=== PATIENT | female | born 1960 | race Caucasian/White ===

== ENCOUNTER → 2016-11-17 | Outpatient (CLI) | payer OTHER, MEDICAID | LOC: BHLMT 10:45 | PROVIDERS: ATTEND Internal Medicine Cardiovascular Disease | DX: I42.9 Cardiomyopathy, unspecified (principal) | CPT/HCPCS: 93306-PO ==

== ENCOUNTER → 2017-03-09 | Outpatient (CLI) | payer OTHER, MEDICAID | LOC: BHLMT 11:00 | PROVIDERS: ATTEND Internal Medicine Cardiovascular Disease | DX: R06.00 Dyspnea, unspecified (principal) | CPT/HCPCS: 93306-PO ==

== ENCOUNTER 2017-03-15 16:18 | Inpatient (IN) | payer OTHER, MEDICAID ==
--- NOTE | 2017-03-15 16:38 | EDPHY ---
H & P Stated Complaint: R QUAD PAIN,SUPRAPUBIC PAIN, CTA9/14 SHOWS MASS IN BILE DUCT? - Personal History Current Tetanus/Diphtheria Vaccine: Unsure Current Tetanus Diphtheria and Acellular Pertussis (TDAP): Unsure - Medical/Surgical History Hx Asthma: No Hx Chronic Respiratory Disease: No Hx Diabetes: No Hx Cardiac Disease: No Hx Renal Disease: No Hx Cirrhosis: No Hx Alcoholism: No Hx HIV/AIDS: No Hx Splenectomy or Spleen Trauma: No Other PMH: PACEMAKER dR CEDEÑO. chf, CERVICAL Disc issues - Social History Smoking Status: Current every day smoker Time Seen by Provider: 03/15/17 16:34 HPI/ROS: Chief complaint: Abdominal pain History of present illness: This is a 56-year-old female who presents to the emergency department for evaluation of abdominal pain. Patient reports she has had pain for at least a month. The pain is primarily on the right side. It comes in waves. She denies precipitating factors. She denies alleviating factors. She denies other associated signs or symptoms including no fevers, no nausea, vomiting or diarrhea. She has had outpatient imaging studies performed including a CT angiogram of the abdomen and pelvis with and without contrast on March 11, 4 days ago at [facility] that showed 'cholelithiasis without CT evidence of cholecystitis, moderate intrahepatic and extrahepatic biliary ductal dilatation and amorphous soft tissue density within the distal common bile duct just above the ampulla most likely reflects choledocholithiasis.' Review of systems: A 10 point review of systems was obtained and other than described above was negative (Alec Mason) - Physical Exam Exam: General Appearance: Alert, appears uncomfortable. Eyes: Pupils equal and round no pallor or injection. ENT, Mouth: Mucous membranes moist. Respiratory: There are no retractions, lungs are clear to auscultation. Cardiovascular: Regular rate and rhythm. Gastrointestinal: Bowel sounds present and normal. Abdomen slightly distended. Diffuse tenderness with point of maximal intensity in the right upper quadrant. Equivocal Swartz sign. Neurological: Alert and oriented x4. Strength and sensation intact and symmetrical. Skin: Warm and dry, no rashes. Musculoskeletal: Neck is supple non tender. Extremities are symmetrical, full range of motion. Psychiatric: Patient is oriented X 3, there is no agitation. (Alec Mason) Constitutional: Initial Vital Signs Temperature (C) 36.8 C 03/15/17 16:24 Heart Rate 89 03/15/17 16:24 Respiratory Rate 16 03/15/17 16:24 Blood Pressure 118/72 03/15/17 16:24 O2 Sat (%) 91 L 03/15/17 16:24 O2 Delivery Mode Room Air Allergies/Adverse Reactions: No Known Allergies Allergy (Unverified 09/27/14 08:22) Home Medications: Medication Instructions Recorded Aspirin EC [Aspirin EC 81 mg (*)] 81 mg PO DAILY 03/15/17 Carvedilol [Coreg (*)] 25 mg PO BIDMEAL 03/15/17 Furosemide [Lasix 40 MG (*)] 40 mg PO BID 03/15/17 Potassium Cl [Klor-Con 20 meq (*)] 20 meq PO DAILY 03/15/17 Vit27&Calcium/Iron/FA 1 each PO DAILY 03/15/17 [ Rx 1 Tablet (RX)] Spironolactone [Aldactone 25 MG 25 mg PO DAILY 03/15/17 (*)] clonAZEPAM [Klonopin] 0.5 mg PO TID PRN 03/15/17 oxyCODONE HCL [Roxicodone] 15 mg PO Q4 PRN 03/15/17 Medical Decision Making - Diagnostics Imaging: Discussed imaging studies w/ orthopedically impaired teacher Radiologist - Diagnostics Imaging Results: Imaging Impressions Abdomen Ultrasound 03/15/17 16:44 Impression: Cholelithiasis with tiny polyps and/or adherent sludge, and a positive sonographic Swartz's sign with mild biliary ductal dilatation but no choledocholithiasis observed. Findings were discussed with Alec Mason PA-C at 17:34, on 03/15/2017. ED Course/Re-evaluation: Patient is discussed with my secondary supervising physician Dr. Shadi Corea. Patient presents to the emergency department for right upper quadrant pain. Ultimately she appears to have symptomatic cholelithiasis. Further she is hyponatremic. She will be admitted to medicine service for further evaluation and care under the care of Dr. Ramesh Mcintosh. Dr. Marc Elliott will consult on this patient as general surgeon. (Alec Mason) Differential Diagnosis: Included but not limited to gastritis, peptic ulcer disease, biliary tract disease, pancreatitis, colitis (Alec Mason) Other Provider: PHYSICIAN DOCUMENTATION: The patient was evaluated and managed by the Physician Manager Of Applications Development and myself. I have reviewed the chart and agree with the findings and plan of care as documented. In addition, I examined the patient myself at 1853. History confirmed as right upper quadrant abdominal pain. Physical findings as follows: Intermittent tenderness in various areas of her abdomen, the exam does show different areas of tenderness during serial examinations. 12-lead EKG interpreted by me; official reading is in trace master. My interpretation is atrial sensed V paced at 80. Patient will be admitted to the hospitalist for hyponatremia and abdominal pain , with General surgery consultation for symptomatic cholelithiasis. I am the secondary supervising physician. (Shadi Corea) - Data Points Laboratory Results: Laboratory Results 03/15/17 16:48 03/15/17 16:48 03/15/17 03/15/17 03/15/17 16:48 16:48 16:48 WBC RBC Hgb Hct MCV MCH MCHC RDW Plt Count MPV Neut % (Auto) Lymph % (Auto) Parke % (Auto) Eos % (Auto) Baso % (Auto) Nucleat RBC Rel Count Absolute Neuts (auto) Absolute Lymphs (auto) Absolute Monos (auto) Absolute Eos (auto) Absolute Basos (auto) Absolute Nucleated RBC Immature Gran % Immature Gran # Sodium 127 mEq/L L mEq/L (134-144) Potassium 3.4 mEq/L L mEq/L (3.5-5.2) Chloride 85 mEq/L L mEq/L (97-110) Carbon Dioxide 29 mEq/l mEq/l (22-31) Anion Gap 13 mEq/L mEq/L (8-16) BUN 7 mg/dL mg/dL (7-23) Creatinine 0.6 mg/dL mg/dL (0.6-1.0) Estimated GFR > 60 Glucose 144 mg/dL H mg/dL (70-100) Calcium 9.8 mg/dL mg/dL (8.5-10.4) Total Bilirubin 0.7 mg/dL mg/dL (0.1-1.4) Conjugated Bilirubin 0.3 mg/dL mg/dL (0.0-0.5) Unconjugated Bilirubin 0.4 mg/dL mg/dL (0.0-1.1) AST 27 IU/L IU/L (14-46) ALT 28 IU/L IU/L (9-52) Alkaline Phosphatase 101 IU/L IU/L (38-126) Troponin I < 0.012 ng/mL ng/mL (0.000-0.034) Total Protein 8.1 g/dL g/dL (6.3-8.2) Albumin 4.5 g/dL g/dL (3.5-5.0) Lipase 21 IU/L L IU/L (23-300) Urine Color TERESITA Urine Appearance HAZY Urine pH 5.0 (5.0-7.5) Ur Specific [place] 1.018 (1.002-1.030) Urine Protein 1+ H (NEGATIVE) Urine Ketones NEGATIVE (NEGATIVE) Urine Blood 1+ H (NEGATIVE) Urine Nitrate NEGATIVE (NEGATIVE) Urine Bilirubin NEGATIVE (NEGATIVE) Urine Urobilinogen 2.0 EU H EU (0.2-1.0) Ur Leukocyte Esterase NEGATIVE (NEGATIVE) Urine RBC 1-3 /hpf /hpf (0-3) Urine WBC 3-5 /hpf H /hpf (0-3) Ur Epithelial Cells TRACE /lpf /lpf (NONE-1+) Hyaline Casts 50-182 /lpf H /lpf (0-1) Urine Mucus TRACE /lpf /lpf (NONE-1+) Urine Glucose NEGATIVE (NEGATIVE) 03/15/17 16:48 WBC 10.30 10^3/uL H 10^3/uL (3.80-9.50) RBC 5.75 10^6/uL H 10^6/uL (4.18-5.33) Hgb 19.4 g/dL H g/dL (12.6-16.3) Hct 54.8 % H % (38.0-47.0) MCV 95.3 fL fL (81.5-99.8) MCH 33.7 pg pg (27.9-34.1) MCHC 35.4 g/dL g/dL (32.4-36.7) RDW 13.3 % % (11.5-15.2) Plt Count 129 10^3/uL L 10^3/uL (150-400) MPV 11.0 fL fL (8.7-11.7) Neut % (Auto) 57.1 % % (39.3-74.2) Lymph % (Auto) 28.9 % % (15.0-45.0) Parke % (Auto) 8.3 % % (4.5-13.0) Eos % (Auto) 3.9 % % (0.6-7.6) Baso % (Auto) 1.5 % % (0.3-1.7) Nucleat RBC Rel Count 0.0 % % (0.0-0.2) Absolute Neuts (auto) 5.89 10^3/uL 10^3/uL (1.70-6.50) Absolute Lymphs (auto) 2.98 10^3/uL 10^3/uL (1.00-3.00) Absolute Monos (auto) 0.85 10^3/uL H 10^3/uL (0.30-0.80) Absolute Eos (auto) 0.40 10^3/uL 10^3/uL (0.03-0.40) Absolute Basos (auto) 0.15 10^3/uL H 10^3/uL (0.02-0.10) Absolute Nucleated RBC 0.00 10^3/uL 10^3/uL (0-0.01) Immature Gran % 0.3 % % (0.0-1.1) Immature Gran # 0.03 10^3/uL 10^3/uL (0.00-0.10) Sodium Potassium Chloride Carbon Dioxide Anion Gap BUN Creatinine Estimated GFR Glucose Calcium Total Bilirubin Conjugated Bilirubin Unconjugated Bilirubin AST ALT Alkaline Phosphatase Troponin I Total Protein Albumin Lipase Urine Color Urine Appearance Urine pH Ur Specific [place] Urine Protein Urine Ketones Urine Blood Urine Nitrate Urine Bilirubin Urine Urobilinogen Ur Leukocyte Esterase Urine RBC Urine WBC Ur Epithelial Cells Hyaline Casts Urine Mucus Urine Glucose Medications Given: Discontinued Medications Hydromorphone HCl (Dilaudid) 1 mg IVP EDNOW ONE Stop: 03/15/17 16:45 Last Admin: 03/15/17 17:42 Dose: 1 mg Oxycodone HCl (Oxycodone Ir) 15 mg PO EDNOW ONE Stop: 03/15/17 19:01 Last Admin: 03/15/17 18:53 Dose: 15 mg Departure - Departure Disposition: [facility] Acute Clinical Impression: Hyponatremia Cholelithiasis Qualifiers: Cholelithiasis location: gallbladder Cholecystitis presence: without cholecystitis Biliary obstruction: without biliary obstruction Qualified Code(s) : K80.20 - Calculus of gallbladder without cholecystitis without obstruction Condition: Good
[2017-03-15] MEDS ORDERED: HYDROmorphONE/DILAUDID 1 MG/ML INJ IVP ONE ×2 (16:44→19:20)
[2017-03-15 16:54] LABS: % IMMATURE GRANULYOCYTES 0.3 % (0.0-1.1); ABSOLUTE IMMATURE GRANULOCYTES 0.03 10^3/uL (0.00-0.10); ADD DIFF? NO; ADD MORPH? NO; ADD SCAN? NO; ATYPICAL LYMPHOCYTE FLAG 10 (0-99); FRAGMENT RBC FLAG 0 (0-99); HEMATOCRIT 54.8 % (38.0-47.0); HEMOGLOBIN 19.4 g/dL (12.6-16.3); LEFT SHIFT FLG 0 (0-99); LIPEMIA HEMOLYSIS FLAG 90 (0-99); MEAN CELL HEMOGLOBIN 33.7 pg (27.9-34.1); MEAN CELL HEMOGLOBIN CONCENTR. 35.4 g/dL (32.4-36.7); MEAN CELL VOLUME 95.3 fL (81.5-99.8); PLATELET CLUMPS FLAG 0 (0-99); PLATELET COUNT 129 10^3/uL (150-400); RED BLOOD CELL COUNT 5.75 10^6/uL (4.18-5.33); RED CELL DISTRIBUTION WIDTH 13.3 % (11.5-15.2)
[2017-03-15 17:04] LABS: COLOR AMBER; LEUKOCYTE ESTERASE,URINE NEGATIVE (NEGATIVE); NITRITE,URINE NEGATIVE (NEGATIVE)
[2017-03-15 17:07] LABS: HYALINE CASTS 50-182 /lpf (0-1); MUCUS TRACE /lpf (NONE-1+)
[2017-03-15 17:32] LABS: ALANINE AMINOTRANSFERASE 28 IU/L (9-52); ALBUMIN 4.5 g/dL (3.5-5.0); ALKALINE PHOSPHATASE 101 IU/L (38-126); ANION GAP 13 mEq/L (8-16); ASPARTATE AMINOTRANSFERASE 27 IU/L (14-46); BILIRUBIN,TOTAL 0.7 mg/dL (0.1-1.4); BILIRUBIN-CONJUGATED 0.3 mg/dL (0.0-0.5); BILIRUBIN-UNCONJUGATED 0.4 mg/dL (0.0-1.1); CALCIUM 9.8 mg/dL (8.5-10.4); CARBON DIOXIDE 29 mEq/l (22-31); CHLORIDE 85 mEq/L (97-110); CREATININE 0.6 mg/dL (0.6-1.0); GLOMERULAR FILTRATION RATE > 60; GLUCOSE 144 mg/dL (70-100); POTASSIUM 3.4 mEq/L (3.5-5.2); SODIUM 127 mEq/L (134-144); TOTAL PROTEIN 8.1 g/dL (6.3-8.2)
[2017-03-15] MEDS ORDERED: oxyCODONE IR 15 MG TAB PO ONE (18:40)
--- NOTE | 2017-03-15 18:52 | CPEKG ---
Heart Rate: 80 RR Interval: 750 P-R Interval: 144 QRSD Interval: 112 QT Interval: 416 QTC Interval: 480 P [place]: -10 QRS [place]: 252 T Wave [place]: 47 EKG Severity - ABNORMAL ECG - EKG Impression: ATRIAL-SENSED VENTRICULAR-PACED RHYTHM Electronically Signed By: Shadi Corea 15-Mar-2017 18:55:01
--- NOTE | 2017-03-15 18:54 | PDGENHP ---
History and Physical History and Physical: CC: Ongoing abdominal pain HISTORY: This patient started developing right upper quadrant abdominal pain approximately a month ago. It has been mostly present since then although it waxes and wanes and occasionally is not present. The only thing that she really notices aggravating his when she bends over. She has been eating well with no nausea or vomiting and she has been having bowel movements. There has been no fever and no signs of bleeding She has had no fever with this. Notably she had seen Dr. Clark recently in [facility] and he ordered a CT scan of the abdomen which was done several days ago and showed evidence of bile duct dilation with what was called and amorphous soft tissue density within the distal common bile duct most consistent with a stone but other etiologies not ruled out. She did have gallstones present in the gallbladder. At this time the patient comes into the ER because of these ongoing abdominal symptoms. In addition to the above the patient around a month ago started noticing that she was feeling swelling of soft tissues in the limbs and face and had gained approximately 12 or more lb. It sounds like there was some degree of dyspnea with that. There was no anginal-type symptom no palpitations no pleuritic pain and no leg pain. She saw Dr. Clark. I reviewed Dr. Clark's notes, all which reflect the finding of had peripheral edema without any pulmonary rales, and an echocardiogram showing her preserved ejection fraction of 50 55%, and good function of her pacemaker. This was a limited echocardiogram and did not include assessment of right heart pressures. She was given instruction to increase her Lasix from 40 mg daily to twice daily along with her usual Aldactone. The patient states that her swelling has resolved and she feels better overall with the increase in diuretic. She still does have some chronic dyspnea with exertion that is at her baseline and notes that she does not tolerate going to altitude at all. She does not use oxygen at home. She is a smoker of many decades, and has a history of nonischemic idiopathic cardiomyopathy it originally left her with ejection fraction of 15%. She has improved with time and with placement of a pacemaker so that she is now at 50-55 % ejection fraction. 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 Her left heart seem to be at her baseline and doing okay. Dr. Clark did not specifically comment on his impression of the mechanism of her episode. ROS: A comprehensive 10 system review revealed no other significant findings PAST MEDICAL HISTORY: Idiopathic nonischemic cardiomyopathy, status post pacemaker placement, most recent ejection fraction 50-55% by echo this month Chronic tobacco abuse I strongly suspect chronic obstructive lung disease and right-sided heart failure related to that Hypertension Stroke Pulmonary embolism FAMILY MEDICAL HISTORY: No family history of heart disease MEDICATIONS: The patients list has been reconciled by our clinical pharmacist in the EMR. I have reviewed the list and ordered appropriate medicines. PHYSICAL EXAMINATION: Vital Signs: Stable without fever Connie Scratcher: Sinus rhythm with ventricular pacing Examination: General: alert, oriented, good mentation, relaxed Skin: warm, dry, good color, no rash HEENT: normal Neck: no mass or jvd Resps: relaxed Lungs: Very diminished but clear breath sounds Heart: regular, no murmur Abdomen: soft, nondistended, with some right upper quadrant tenderness no guarding or rebound, +BS, no mass Upper Extremities: normal Lower Extremities: no edema, warm No Bleeding or bruising Neurologic: normal speech/language, normal plush brusher, no focal weakness IV site: looks normal LABORATORY DATA: [place] [address] though the neutrophil count is normal at 5000 Hemoglobin is elevated 19 though is chronically elevated in that range Sodium is low at 127, it was 134 earlier this month Liver panel and troponin are normal RADIOLOGY STUDIES: Two-view chest x-ray done in the ER, my interpretation of the images shows marked good hyperexpansion of lungs, without evidence of left-sided congestive heart failure Abdominal ultrasound is done today showing evidence of gallstones and sludge in the gallbladder and common bile duct dilatation, with positive sonographic Swartz sign. The patient and her son have with them reports from a CT scan of the chest and the abdomen done at [facility] last week. Most notably the show evidence of common bile duct dilatation with probably a common distal duct stone as well as gallstones in the gallbladder. 12 LEAD EKG: Done in the ER, my interpretation of the tracing: Sinus rhythm with ventricular pacing and corresponding QRS and ST changes from pacing ASSESSMENT: # right upper quadrant abdominal pain for 1 month assess associated with CT and ultrasound findings of gallstones and biliary duct dilatation, and the ultrasound tonight has a positive sonographic Swartz sign. The interpretation of the CT from the radiologist was that there was an a more for soft tissue density in the common bile duct most consistent with a stone but with a differential diagnosis of other soft tissue. My interpretation is that this is most likely gallstone disease and will require cholecystectomy and removal of possibly a common duct stone. Dr. Elliott has been consulted to see the patient # recent episode of what sounds like right-sided congestive heart failure successfully treated with diuretic medicine increase. She is at her baseline now from both right and left heart function and symptoms # hyponatremia, uncertain what the cause of this is. She appears to be fairly close to euvolemic at this time # COPD based on her chronic symptoms, evidence of right heart disease, and ongoing smoking history # erythrocytosis, almost certainly secondary to chronic heart lung disease # history of pulmonary embolism with high risk of DVT and PE here in the hospital # PREOPERATIVE RISK ASSESSMENT: Overall she is at somewhat increased operative risk primarily at this time due to her chronic lung disease with evidence of COPD and right-sided heart disease related to that. I suspect she has pulmonary hypertension but did not have echocardiogram confirmation of that at this time. In terms of left heart function she seems to be doing fine right now with the ejection fraction of 50-55% with no ischemic symptoms or findings and no history of coronary disease. She does have history of PE and so is at risk for thromboembolism requiring anticoagulation. Her hyponatremia should be followed very closely. It would be good CT at least that is stable before trying to go to surgery. Overall we should be able to get her through a surgery here during this hospital stay safely enough if that is the ultimate recommendation after Dr. Elliott sees her. She should continue on her current cardiac medicines as much as possible through her hospital stay, bronchodilators will be useful, mobilization particularly early mobilization after surgery another to routine measures will be instituted. PLANS: -for the moment until Dr. Elliott sees her, will put her in observation status here. If she can have gallbladder out if that is actually indicated she could potentially have it done tonight or tomorrow and potentially still go home tomorrow. She has been of medical issues however there is possible she could have to stay longer particularly if her sodium is slowly correcting. -I will review the case with Dr. Elliott after he has a chance to see her -I have ordered PFTs to review her lung function and will add bronchodilators to her medicine list -urine sodium and creatinine to assess her hyponatremia -fluid restriction and repeat sodium in the morning I have reviewed the patient's case in detail with Dr. Shadi Corea I have reviewed the patient's past medical records as part of this assessment, including outpatient clinic records from Dr. Julio Cesar Clark and CT scan imaging reports from her CT chest and abdomen from [facility] last week.
[2017-03-15] MEDS ORDERED: oxyCODONE IR 5 MG TAB PO ONE (19:00)
[2017-03-15] MEDS ORDERED: oxyCODONE IR 15 MG TAB PO PRN (19:07)
[2017-03-15] MEDS ORDERED: NON-FORMULARY NEW DRUG (Clonazepam [Klonopin] 0.5 MG) PO PRN (19:07)
[2017-03-15] MEDS ORDERED: ONDANSETRON 4 MG/2 ML VIAL IVP PRN (19:09)
[2017-03-15] MEDS ORDERED: HYDROmorphONE/DILAUDID 1 MG/ML INJ ONE (19:21)
[2017-03-15] MEDS ORDERED: clonazePAM 0.5 MG TAB PO PRN (19:36)
[2017-03-15] MEDS: HYDROmorphONE/DILAUDID 1 MG/ML INJ IVP PRN (20:43)
[2017-03-15] MEDS: FUROSEMIDE 40 MG TAB PO SCH (20:44)
[2017-03-15] MEDS ORDERED: MIDAZOLAM 2 MG/2 ML VIAL IVP ONE (23:34)
--- NOTE | 2017-03-15 23:34 | PDANEPAE ---
ANE History of Present Illness 56 yo for lap jasiel h/o non ischemic cardiomopaty last ef 55% ANE Past Medical History - Cardiovascular History Hx Hypertension: No Hx Arrhythmias: No Hx Chest Pain: No Hx Coronary Artery / Peripheral Vascular Disease: No Hx CHF / Valvular Disease: Yes Hx Palpitations: No - Pulmonary History Hx COPD: Yes Hx Asthma/Reactive Airway Disease: No Hx Oxygen in Use at Home: No Hx Sleep Apnea: No Sleep Apnea Screening Result - Last Documented: Negative - Endocrine History Hx Diabetes: No ANE Review of Systems Review of Systems: ANE Patient History - Allergies Allergies/Adverse Reactions: No Known Allergies Allergy (Unverified 09/27/14 08:22) - Home Medications Home medications: home medication list seen and reviewed Home Medications: Aspirin EC [Aspirin EC 81 mg (*)] 81 mg PO DAILY 03/15/17 [Last Taken Unknown] Carvedilol [Coreg (*)] 25 mg PO BIDMEAL 03/15/17 [Last Taken Unknown] Furosemide [Lasix 40 MG (*)] 40 mg PO BID 03/15/17 [Last Taken Unknown] Potassium Cl [Klor-Con 20 meq (*)] 20 meq PO DAILY 03/15/17 [Last Taken Unknown] Vit27&Calcium/Iron/FA [ Rx 1 Tablet (RX)] 1 each PO DAILY 03/15 [Last Taken Unknown] Spironolactone [Aldactone 25 MG (*)] 25 mg PO DAILY 03/15/17 [Last Taken Unknown ] clonAZEPAM [Klonopin] 0.5 mg PO TID PRN 03/15/17 [Last Taken Unknown] oxyCODONE HCL [Roxicodone] 15 mg PO Q4 PRN 03/15/17 [Last Taken 03/15/17 12:00] - NPO status NPO Since - Liquids (Date): 03/15/17 NPO Since - Liquids (Time): 14:00 NPO Since - Solids (Date): 03/15/17 NPO Since - Solids (Time): 14:00 - Smoking Hx Smoking Status: Current every day smoker ANE Labs/Vital Signs - Labs Result Diagrams: 03/15/17 16:48 03/15/17 16:48 - Vital Signs Blood Pressure: 101/96 Heart Rate: 92 Respiratory Rate: 18 O2 Sat (%): 93 Height: 5 ft 9 in Weight: 65.771 kg ANE Physical Exam - Airway Neck exam: FROM Mallampati Score: Class 3 Mouth exam: dentures, small mouth opening - Pulmonary Pulmonary: no respiratory distress - Cardiovascular Cardiovascular: regular rate and rhythym - ASA Status ASA Status: III ANE Anesthesia Plan Anesthesia Plan: general endotracheal anesthesia
[2017-03-15] MEDS ORDERED: PROPOFOL/EMULSION 500 MG/50 ML BOTTLE IV ONE (23:39)
[2017-03-15] MEDS ORDERED: fentaNYL 100 MCG/2 ML INJ ONE ×2 (23:39)
[2017-03-15] MEDS ORDERED: MIDAZOLAM 2 MG/2 ML VIAL ONE (23:44)
[2017-03-15] MEDS ORDERED: BUPIVACAINE 0.5% 30 ML SDV ONE (23:50)
[2017-03-15] MEDS ORDERED: ceFAZolin 1 GM/5 ML SYR ONE (23:52)
[2017-03-15] MEDS ORDERED: HEPARIN 1000 UNIT/1 ML MDV ONE (23:52)
[2017-03-16] MEDS ORDERED: IOTHALAMATE MEG (CONRAY) 50 ML VIAL IV ONE ×2 (00:28→14:49)
[2017-03-16] MEDS ORDERED: ERTAPENEM 1 GM in NS 100 ML IV ONE (00:33)
[2017-03-16] MEDS ORDERED: ONDANSETRON 4 MG/2 ML VIAL IVP PRN (00:50)
[2017-03-16] MEDS ORDERED: PROMETHAZINE HCL 25 MG/ML INJ IVP PRN ×2 (00:50→16:59)
[2017-03-16] MEDS ORDERED: NALOXONE HCL 0.4 MG/ML INJ IVP PRN ×3 (00:50→16:59)
[2017-03-16] MEDS ORDERED: ALBUTEROL 3 ML DEYVIAL IH PRN (00:50)
[2017-03-16] MEDS ORDERED: fentaNYL 100 MCG/2 ML INJ ONE ×2 (00:51→01:27)
[2017-03-16] MEDS ORDERED: SUGAMMADEX SODIUM 200 MG/2 ML VIAL IVP ONE (00:57)
--- NOTE | 2017-03-16 01:14 | POSTOPPROG ---
Post Op Note Date of Operation: 03/16/17 Surgeon: Gurpreet Elliott Anesthesiologist: MARTINEZ Anesthesia: GET(General Endotracheal) Pre-op Diagnosis: ACUTE CHOLYCYSTITIS Post-op Diagnosis: SAME +CHOLEDOCHOLITHIASIS Indication: PAIN Procedure: LAP CHOLEY WITH GRAMS Findings: DISTENDED GB WITH STONES, LARGE CD WITH STONES Inf/Abcess present in the surg proc area at time of surgery?: Yes Depth: Organ Space EBL: Minimal Complications: 0 Specimen(s): GALLBLADDER
--- NOTE | 2017-03-16 01:16 | POSTANESTH ---
Post Anesthetic Evaluation Cardiovascular Status: Normal, Stable Respiratory Status: Similar to Pre-op Cond. Level of Consciousness/Mental Status: Mildly Sleepy, Arousable Pain Control: Adequate, Prn Tx Ordered Nausea/Vomiting Control: Adequate, Prn Tx Ordered
[2017-03-16] MEDS: fentaNYL 100 MCG/2 ML INJ IVP PRN ×2 (01:27→01:38)
[2017-03-16] MEDS ORDERED: D5W 1/2 NS W/ 20 KCl/L 1,000 ML IV SCH (01:30)
[2017-03-16] MEDS ORDERED: HYDROmorphONE/DILAUDID 1 MG/ML INJ ONE ×3 (01:40→17:22)
[2017-03-16] MEDS: HYDROmorphONE/DILAUDID 1 MG/ML INJ IVP PRN ×7 (01:45→10:51)
[2017-03-16] MEDS ORDERED: KETOROLAC 15 MG/1 ML SDV ONE (02:08)
[2017-03-16] MEDS ORDERED: KETOROLAC 15 MG/1 ML SDV IVP ONE (02:30)
[2017-03-16 06:02] LABS: % IMMATURE GRANULYOCYTES 0.4 % (0.0-1.1); ABSOLUTE IMMATURE GRANULOCYTES 0.05 10^3/uL (0.00-0.10); ADD DIFF? NO; ADD MORPH? NO; ADD SCAN? NO; ATYPICAL LYMPHOCYTE FLAG 0 (0-99); FRAGMENT RBC FLAG 0 (0-99); HEMATOCRIT 48.3 % (38.0-47.0); HEMOGLOBIN 16.9 g/dL (12.6-16.3); INR 1.06 (0.83-1.16); LEFT SHIFT FLG 0 (0-99); LIPEMIA HEMOLYSIS FLAG 90 (0-99); MEAN CELL HEMOGLOBIN 33.5 pg (27.9-34.1); MEAN CELL VOLUME 95.8 fL (81.5-99.8); MEAN PLATELET VOLUME 11.3 fL (8.7-11.7); PLATELET CLUMPS FLAG 0 (0-99); PLATELET COUNT 103 10^3/uL (150-400); PROTIME(PATIENT) 13.7 SEC (12.0-15.0); RED BLOOD CELL COUNT 5.04 10^6/uL (4.18-5.33); RED CELL DISTRIBUTION WIDTH 13.2 % (11.5-15.2)
[2017-03-16 06:08] LABS: ALANINE AMINOTRANSFERASE 51 IU/L (9-52); ALBUMIN 3.2 g/dL (3.5-5.0); ALKALINE PHOSPHATASE 82 IU/L (38-126); AMYLASE < 30 IU/L (30-110); ANION GAP 7 mEq/L (8-16); ASPARTATE AMINOTRANSFERASE 95 IU/L (14-46); BILIRUBIN,TOTAL 0.6 mg/dL (0.1-1.4); BILIRUBIN-CONJUGATED 0.3 mg/dL (0.0-0.5); BILIRUBIN-UNCONJUGATED 0.3 mg/dL (0.0-1.1); CARBON DIOXIDE 31 mEq/l (22-31); CHLORIDE 89 mEq/L (97-110); CREATININE 0.6 mg/dL (0.6-1.0); GLOMERULAR FILTRATION RATE > 60; GLUCOSE 137 mg/dL (70-100); POTASSIUM 3.4 mEq/L (3.5-5.2); SODIUM 127 mEq/L (134-144); TOTAL PROTEIN 6.2 g/dL (6.3-8.2)
[2017-03-16] MEDS: ASPIRIN EC 81 MG TAB PO SCH (08:14)
[2017-03-16] MEDS: CARVEDILOL 25 MG TAB PO SCH ×2 (08:14→20:26)
[2017-03-16] MEDS: FUROSEMIDE 40 MG TAB PO SCH (08:14)
[2017-03-16] MEDS ORDERED: POTASSIUM Cl (KCl) 40 MEQ in NS 1,000 ML IV SCH (08:30)
[2017-03-16] MEDS ORDERED: PRENATAL VIT 1 EACH TAB PO SCH (09:00)
[2017-03-16] MEDS ORDERED: ENOXAPARIN 40 MG/0.4 ML SYR SC SCH (09:00)
[2017-03-16] MEDS ORDERED: POTASSIUM CL 20 MEQ TAB PO SCH (09:00)
--- NOTE | 2017-03-16 09:54 | SOAPPROG ---
SOAP Progress Note Assessment/Plan: Assessment/Plan: 56 Y F s/p lap jasiel, cholelithiasis, acute cholecystitis, choledocholithiasis. POD#0. D/w'ed Dr. Elliott and Dr. Livingston. 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 Dr Livingston or Dr. Aden likely to take her for ERCP today. S: c/o pain. hungry. O: alert, nad mmm no wob abd soft, inc cdi Examined with Dr. Elliott. 03/16/17 10:46 Objective: Vital Signs Temp Pulse Resp BP Pulse Ox 36.7 C 84 18 104/57 L 90 L 03/16/17 07:47 03/16/17 07:47 03/16/17 07:47 03/16/17 07:47 03/16/17 07:47 Laboratory Results 03/16/17 05:30 03/16/17 05:30 03/15/17 03/16/17 03/17/17 05:59 05:59 05:59 Intake Total 1415 Output Total 270 Balance 1145 PT 13.7 SEC (12.0-15.0) 03/16/17 05:30 INR 1.06 (0.83-1.16) 03/16/17 05:30 ICD10 Worksheet Patient Problems: Problems Problem Status Onset Cholelithiasis Acute Hyponatremia Acute
[2017-03-16] MEDS: ERTAPENEM 1 GM in NS 100 ML IV SCH (10:41)
--- NOTE | 2017-03-16 11:27 | GCON ---
[f rep st] CONSULTATION DATE OF CONSULTATION: 03/15/2017 HISTORY OF PRESENT ILLNESS: The patient is a 56-year-old female who presents with nearly 2 weeks of abdominal pain focused in the right upper quadrant, radiating to her back. She has been unable to eat . She denies any significant vomiting. LFTs have been normal. Her ultrasound reveals multiple gallsto lucille and enlarged common duct. She denies any fever, but she has been having symptoms for over a month , she says. She has had a recent cardiac evaluation which showed good heart function despite her pace maker needs. She has had some recent peripheral edema which responded to Lasix from her developer architect. She has a history of cardiomyopathy. PAST HISTORY: Includes nonischemic cardiomyopathy, pacemaker placement, chronic tobacco use, some CO PD, hypertension, history of a stroke, and history of a small remote pulmonary embolism. FAMILY HISTORY: Positive for heart disease, but otherwise noncontributory. REVIEW OF SYSTEMS: Reveals no other major medical problems on a full 10-point review of systems, but specifically she is smoking. She denies any present cardiac symptoms. ALLERGIES: None. MEDICATIONS: Aspirin, Coreg, Lasix, potassium, vitamins, Aldactone, Klonopin, and Roxicodone. PHYSICAL EXAMINATION: GENERAL: An anxious, uncomfortable 56-year-old female in no acute distress. HE AD/NECK: No icterus. No adenopathy. No oral lesions. Neck is supple. There are no carotid bruits. SEAN ST: Symmetrical breath sounds. CARDIAC: Regular rhythm without murmur. She has a pacemaker in place. ABDOMEN: Soft, distended, tender in the right upper quadrant with some guarding but no rebound. Posit cory bowel sounds. There are no obvious hernias. EXTREMITIES: Benign with full pulses. SKIN: Intact wi thout lesions. NEUROLOGIC: Physiologic and symmetric. PSYCH: She appears to be oriented and cooperati ve. LABORATORY DATA: Reveals her LFTs to be normal and her sodium is 127. Her white count is 10,000, hem atocrit is 55%. Ultrasound reveals multiple gallstones and some dilated bile ducts. Previous CT scan a few days ago revealed gallstones and dilated bile duct. Her troponins are also normal. EKG reveals a paced rhythm. It is unclear why she is on the Roxicodone , except related to this abdominal pain. IMPRESSION: Symptomatic cholelithiasis and cholecystitis. PLAN: Admission for laparoscopic cholecystectomy. Risks and options have been fully discussed and wi ll depend on medical clearance prior to cholecystectomy. /[id number]/MODL
[2017-03-16] MEDS ORDERED: HYDROmorphONE/DILAUDID 6 MG/30 ML PCA IV PRN (12:01)
[2017-03-16] MEDS ORDERED: LACTULOSE 20 GM/30 ML UDCUP PO PRN (12:02)
[2017-03-16] MEDS ORDERED: BISACODYL 10 MG SUPP PR PRN (12:02)
[2017-03-16] MEDS ORDERED: MAGNESIUM HYDROXIDE 30 ML UDCUP PO PRN (12:02)
[2017-03-16] MEDS ORDERED: POLYETHYLENE GLYCOL 3350 17 GM PKT PO PRN (12:02)
--- NOTE | 2017-03-16 12:04 | SOAPPROG ---
BUZZ Progress Note Assessment/Plan: 1. Acute abd pain, cholelithiasis, choledocholithiasis -post op day 1, revwd care plan with general surgery -ERCP today for CBD stone -NPO, advance per surgery -change to dilaudid NP 2. hyponatremia -NS follow closely 3. COPD and ongoing TOB use -nebs -watch closely post procedure -O2 4. polycythemia -likely from COPD/chronic hypoxia -follow -consider heme consult as o/p if not already done 5. Hx PE/DVT -mechanical prophy as having procedure today -lovenox when OK with surgery -ambulation 7. Pacer -placed bc of idiopathic non ischemic cardiomyopathy -most recent EF 50-55% per Dr Mcintosh's H and P -hold diuretic for now -tele PCP- Dr Tenorio FULL CODE DISPO > 2 mdnts as having another procedure today DVT prophy- mechanical/ambulation Subjective: Having abd pain still, also hungry. No CP/SOB. Having ERCP later today. Son in room. Objective: Vital Signs Temp Pulse Resp BP Pulse Ox 98.0 F 67 20 97/46 L 87 L 03/16/17 07:47 03/16/17 11:06 03/16/17 11:06 03/16/17 11:06 03/16/17 11:06 Laboratory Results 03/16/17 05:30 03/16/17 05:30 03/15/17 03/16/17 03/17/17 11:59 11:59 11:59 Intake Total 1415 Output Total 270 Balance 1145 PT 13.7 SEC (12.0-15.0) 03/16/17 05:30 INR 1.06 (0.83-1.16) 03/16/17 05:30 Physical Exam - Physical Exam General Appearance: alert, mild distress Respiratory: wheezing (L sided), No respiratory distress, No accessory muscle use, No crackles, No rhonchi Abdomen: normal bowel sounds, soft, No distended, No guarding Neuro/Psych: alert, normal mood/affect, No cognition abnormalities, No speech abnormalities ICD10 Worksheet Patient Problems: Problems Problem Status Onset Cholelithiasis Acute Hyponatremia Acute
--- NOTE | 2017-03-16 12:40 | ASMTCMCOM ---
CM Note CM Note Notes: Reviewed chart. No case management d/c need identified d/t pt age and activity levels prior to admission. No Therapy evals ordered. Case Management d/c poc: Home independent when medically stable. Case Management available if needs change. Date Signed: 03/16/2017 12:39 PM Electronically Signed By:Nita Verduzco RN
[2017-03-16] MEDS ORDERED: GLUCAGON,HUMAN RECOMBINANT 1 MG VIAL ONE (14:48)
[2017-03-16] MEDS ORDERED: FUROSEMIDE 40 MG TAB PO SCH (15:00)
--- NOTE | 2017-03-16 15:08 | PDGENHP ---
History & Physical Chief Complaint: positive IOC for CBD stones Relevant Physical Exam: GEN: NAD. Cardiac: paced. Lungs: CTA B. Abd: Soft, tender to light and deep palpation diffusely
[2017-03-16] MEDS ORDERED: LR 1,000 ML IV ONE (15:25)
[2017-03-16] MEDS ORDERED: LIDOCAINE 1% 2 ML INJ ID PRN (15:25)
[2017-03-16] MEDS ORDERED: IPRATROPIUM/ALBUTEROL 3 ML DEYVIAL IH ONE (15:33)
--- NOTE | 2017-03-16 15:33 | PDANEPAE ---
ANE History of Present Illness 56 year old female with hyponatremia, non-ischemic CM s/p PM and improvement of EF from 15 -> 55%, presumed COPD, recent R-sided heart failure now resolved. Had jasiel, now here for ERCP to remove stones still in duct. ANE Past Medical History - Cardiovascular History Hx Hypertension: No Hx Arrhythmias: No Hx Chest Pain: No Hx Coronary Artery / Peripheral Vascular Disease: No Hx CHF / Valvular Disease: Yes Hx Palpitations: No Cardiovascular History Comment: R-sided HF this month with 12 lb weight gain then loss of fluid. - Pulmonary History Hx COPD: Yes Hx Asthma/Reactive Airway Disease: No Hx Oxygen in Use at Home: No Hx Sleep Apnea: No Sleep Apnea Screening Result - Last Documented: Negative - Endocrine History Hx Diabetes: No ANE Review of Systems Review of Systems: - Exercise capacity METS (RN): 2 METS (dyspnea on exertion) - Systems Constitutional: Reports: malaise Cardiac: Reports: edema Respiratory: Reports: shortness of breath Gastrointestinal: Reports: abdominal pain ANE Patient History - Allergies Allergies/Adverse Reactions: No Known Allergies Allergy (Unverified 09/27/14 08:22) - Home Medications Home medications: home medication list seen and reviewed Home Medications: Aspirin EC [Aspirin EC 81 mg (*)] 81 mg PO DAILY 03/15/17 [Last Taken Unknown] Carvedilol [Coreg (*)] 25 mg PO BIDMEAL 03/15/17 [Last Taken Unknown] Furosemide [Lasix 40 MG (*)] 40 mg PO BID 03/15/17 [Last Taken Unknown] Potassium Cl [Klor-Con 20 meq (*)] 20 meq PO DAILY 03/15/17 [Last Taken Unknown] Vit27&Calcium/Iron/FA [ Rx 1 Tablet (RX)] 1 each PO DAILY 03/15 [Last Taken Unknown] Spironolactone [Aldactone 25 MG (*)] 25 mg PO DAILY 03/15/17 [Last Taken Unknown ] clonAZEPAM [Klonopin] 0.5 mg PO TID PRN 03/15/17 [Last Taken Unknown] oxyCODONE HCL [Roxicodone] 15 mg PO Q4 PRN 03/15/17 [Last Taken 03/15/17 12:00] - NPO status NPO Since - Liquids (Date): 03/14/17 NPO Since - Liquids (Time): 14:00 NPO Since - Solids (Date): 03/14/17 NPO Since - Solids (Time): 14:00 - Anes Hx Anes Hx: no prior problems - Smoking Hx Smoking Status: Current every day smoker - Family Anes Hx Family Anes Hx: neg - N/A ANE Labs/Vital Signs - Labs Result Diagrams: 03/16/17 05:30 03/16/17 05:30 - Labs - BMP Sodium: hyponatremia - unlcear etiology. No improvement with fluid restriction. - Vital Signs Blood Pressure: 92/44 Heart Rate: 67 Respiratory Rate: 16 O2 Sat (%): 90 Height: 175.26 cm Weight: 52.254 kg ANE Physical Exam - Airway Neck exam: FROM Mallampati Score: Class 3 - Pulmonary Pulmonary: reduced air movement, expiratory wheeze - Cardiovascular Cardiovascular: regular rate and rhythym - ASA Status ASA Status: IV ANE Anesthesia Plan Anesthesia Plan: general endotracheal anesthesia
[2017-03-16] MEDS ORDERED: INDOMETHACIN 50 MG SUPP PR ONE (15:36)
[2017-03-16] MEDS ORDERED: ALBUTEROL 3 ML DEYVIAL ONE ×2 (15:38→17:10)
[2017-03-16] MEDS: ALBUTEROL 3 ML DEYVIAL IH PRN ×2 (15:39→17:13)
[2017-03-16] MEDS ORDERED: fentaNYL 250 MCG/5 ML INJ ONE (15:42)
[2017-03-16] MEDS ORDERED: LIDOCAINE 2% 5 ML SDV ONE (15:42)
[2017-03-16] MEDS ORDERED: PROPOFOL 200 MG/20 ML VIAL ONE (15:42)
[2017-03-16] MEDS ORDERED: DEXAMETHASONE 4 MG/ML VIAL ONE (15:43)
[2017-03-16] MEDS ORDERED: ROCURONIUM 50 MG/5 ML VIAL ONE (15:43)
[2017-03-16] MEDS ORDERED: levOFLOXACIN 500 MG/DEXTROSE/100 ML BAG IV ONE ×2 (15:49)
[2017-03-16] MEDS ORDERED: ONDANSETRON 4 MG/2 ML VIAL ONE (16:27)
[2017-03-16] MEDS ORDERED: NEOSTIGMINE METHYLSULFATE 3 MG/3 ML SYR ONE (16:30)
[2017-03-16] MEDS ORDERED: HYDROmorphONE/DILAUDID 1 MG/ML INJ IVP PRN (16:59)
[2017-03-16] MEDS ORDERED: IPRATROPIUM/ALBUTEROL 3 ML DEYVIAL IH PRN (17:01)
[2017-03-16] MEDS ORDERED: oxyCODONE IR 15 MG TAB PO ONE (17:01)
--- NOTE | 2017-03-16 17:06 | POSTANESTH ---
Post Anesthetic Evaluation Cardiovascular Status: Similar to Pre-Op Cond (paced ventricular beats) Respiratory Status: Similar to Pre-op Cond. (hypoxemia), Tx Decrease in SpO2 ( Pt on 10 LPM via FM) Level of Consciousness/Mental Status: Can Participate in Eval, Alert and Oriented Pain Control: Inadeq, Add Tx Required (Pt reports 10/10 pain in abdomen and 8/ 10 pain in back. VS do not reflect acute pain.) Nausea/Vomiting Control: Adequate, Prn Tx Ordered Complications Possibly Related to Anesthesia: None Noted
[2017-03-16] MEDS ORDERED: oxyCODONE IR 5 MG TAB ONE (17:08)
[2017-03-16] MEDS: oxyCODONE IR 15 MG TAB PO PRN ×3 (18:29→22:48)
--- NOTE | 2017-03-16 18:45 | HOSPPROG ---
Hospitalist Progress Note Assessment/Plan: 45 minutes of critical care time spent at bedside with this patient, addressing the issues outlined below: - notified by nurse that the patient is hypotensive, hypoxic on 12 L face mask, experiencing significant pain located in the mid abdomen, and requesting more pain medications - evaluated the patient, she does have some tenderness in the mid epigastric area but she is not guarding, there is no significant erythema around her surgical sites, she has expiratory wheezes and bronchial breath sounds, she has some inspiratory crackles in the bases, she does not appear overtly tachypneic, but her SpO2 was 85% on 15 L face mask - she has some soft tissue edema a very minimal lower extremity edema, the patient is mentating well and she is perseverating on her pain medications - chest x-ray demonstrates some interstitial prominence and cardiomegaly - she has a history of nonischemic cardiomyopathy ejection fraction 15%, but review of Dr. Mcintosh history and physical expresses that the patient's ejection fraction is mostly recently recovered to 50-55% - her Lasix is currently on hold and she did receive 25 mg of carvedilol this morning - stat team was called, discussed the case with Dr. Santo Garcia, we have agreed to place the patient on BiPAP, administer the requested oral pain medication dosage, and monitor for improvement in pain, monitor for improvement in hypoxia - hold on diuretics at this time, given that her systolic blood pressure is fluctuating between 85 and 90 - will draw ABG, arterial lactic, CBC to rule out bleeding, blood cultures, and get abdominal CT with IV contrast to ensure that she does not have any kevin operative infection - explained to the patient and her family that she is critically ill, and may require intubation, the patient seems to have limited understanding of the severity of her situation, requesting that she only wants more pain medications Subjective: active abdominal pain Objective: Vital Signs Temp Pulse Resp BP Pulse Ox 36.7 C 73 18 89/47 L 86 L 03/16/17 18:00 03/16/17 18:06 03/16/17 18:06 03/16/17 18:00 03/16/17 18:06 03/15/17 03/16/17 03/17/17 05:59 05:59 05:59 Intake Total 1050 Balance 1050 PT 13.7 SEC (12.0-15.0) 03/16/17 05:30 INR 1.06 (0.83-1.16) 03/16/17 05:30 ICD10 Worksheet Patient Problems: Problems Problem Status Onset Cholelithiasis Acute Hyponatremia Acute
[2017-03-16 20:02] LABS: % IMMATURE GRANULYOCYTES 0.5 % (0.0-1.1); ABSOLUTE IMMATURE GRANULOCYTES 0.07 10^3/uL (0.00-0.10); ADD DIFF? NO; ADD MORPH? NO; ADD SCAN? NO; ATYPICAL LYMPHOCYTE FLAG 0 (0-99); FRAGMENT RBC FLAG 0 (0-99); HEMATOCRIT 46.5 % (38.0-47.0); LEFT SHIFT FLG 0 (0-99); LIPEMIA HEMOLYSIS FLAG 90 (0-99); MEAN CELL HEMOGLOBIN 33.1 pg (27.9-34.1); MEAN CELL HEMOGLOBIN CONCENTR. 34.4 g/dL (32.4-36.7); MEAN CELL VOLUME 96.3 fL (81.5-99.8); MEAN PLATELET VOLUME 11.1 fL (8.7-11.7); PLATELET CLUMPS FLAG 0 (0-99); PLATELET COUNT 101 10^3/uL (150-400); RED BLOOD CELL COUNT 4.83 10^6/uL (4.18-5.33)
[2017-03-16 20:21] LABS: BASE EXCESS 5.3 mEq/L (-2.5-2.5); BICARBONATE 30 mEq/L (22-26); MEASURED OXYGEN SATURATION 95 % (92-95); PCO2 45 mmHg (34-38); PO2 78 mmHg (65-75); TCO2 31 mEq/L (23-27)
[2017-03-16 20:27] LABS: BIPAP YES; EXP PRESSURE 5; INSP PRESSURE 12; O2 CONCENTRATIION 50 % (0-100); P/F RATIO 156 RATIO
[2017-03-16] MEDS: SENNOSIDES/DOCUSATE SODIUM TAB PO SCH (20:36)
[2017-03-16] MEDS: POTASSIUM Cl (KCl) 100 ML IV SCH ×3 (20:37→23:58)
[2017-03-16] MEDS: IPRATROPIUM/ALBUTEROL 3 ML DEYVIAL IH PRN (22:52)
[2017-03-17] MEDS ORDERED: POTASSIUM CL 10 MEQ TAB PO ONE (00:30)
[2017-03-17] MEDS: oxyCODONE IR 15 MG TAB PO PRN ×10 (00:42→23:49)
[2017-03-17] MEDS ORDERED: oxyCODONE IR 15 MG TAB PO ONE (04:33)
[2017-03-17] MEDS: LORazepam 2 MG/ML INJ IVP PRN ×3 (05:03→22:04)
[2017-03-17 05:31] LABS: ALANINE AMINOTRANSFERASE 137 IU/L (9-52); ALBUMIN 3.1 g/dL (3.5-5.0); ALKALINE PHOSPHATASE 139 IU/L (38-126); ANION GAP 7 mEq/L (8-16); ASPARTATE AMINOTRANSFERASE 234 IU/L (14-46); BILIRUBIN,TOTAL 3.9 mg/dL (0.1-1.4); CALCIUM 9.1 mg/dL (8.5-10.4); CARBON DIOXIDE 30 mEq/l (22-31); CHLORIDE 95 mEq/L (97-110); CREATININE 0.6 mg/dL (0.6-1.0); GLOMERULAR FILTRATION RATE > 60; GLUCOSE 103 mg/dL (70-100); POTASSIUM 4.1 mEq/L (3.5-5.2); SODIUM 132 mEq/L (134-144); TOTAL PROTEIN 5.9 g/dL (6.3-8.2)
[2017-03-17 05:33] LABS: % IMMATURE GRANULYOCYTES 0.5 % (0.0-1.1); ABSOLUTE IMMATURE GRANULOCYTES 0.06 10^3/uL (0.00-0.10); ADD DIFF? NO; ADD MORPH? NO; ADD SCAN? NO; ATYPICAL LYMPHOCYTE FLAG 0 (0-99); FRAGMENT RBC FLAG 0 (0-99); HEMATOCRIT 44.3 % (38.0-47.0); HEMOGLOBIN 15.1 g/dL (12.6-16.3); LEFT SHIFT FLG 0 (0-99); LIPEMIA HEMOLYSIS FLAG 90 (0-99); MEAN CELL HEMOGLOBIN 32.9 pg (27.9-34.1); MEAN CELL HEMOGLOBIN CONCENTR. 34.1 g/dL (32.4-36.7); MEAN CELL VOLUME 96.5 fL (81.5-99.8); MEAN PLATELET VOLUME 11.8 fL (8.7-11.7); PLATELET CLUMPS FLAG 0 (0-99); PLATELET COUNT 114 10^3/uL (150-400); RED BLOOD CELL COUNT 4.59 10^6/uL (4.18-5.33)
[2017-03-17] MEDS: IPRATROPIUM/ALBUTEROL 3 ML DEYVIAL IH PRN ×4 (05:45→22:21)
[2017-03-17] MEDS: GABAPENTIN 300 MG CAP PO SCH ×3 (05:49→20:51)
[2017-03-17 06:30] LABS: BILIRUBIN-CONJUGATED 2.8 mg/dL (0.0-0.5); BILIRUBIN-UNCONJUGATED 1.1 mg/dL (0.0-1.1)
[2017-03-17] MEDS: ASPIRIN EC 81 MG TAB PO SCH (08:49)
[2017-03-17] MEDS: SENNOSIDES/DOCUSATE SODIUM TAB PO SCH ×2 (08:50→19:58)
--- NOTE | 2017-03-17 08:59 | SOAPPROG ---
SOAP Progress Note Assessment/Plan: Assessment/Plan: 56 Y F s/p lap jasiel, cholelithiasis, acute cholecystitis, choledocholithiasis. POD#2. s/p ERCP POD#1. Hypoxia and hypotension last evening. Stat team called. CTA neg for PE, CT neg for abdominal process. Amylase normal--doubt pancreatitis. Now on 12 L O2 and appears comfortable. BP systolic in 90's. Getting some extra IV fluids with her protonix and Invanz this am. Will advance to clears, and then low fat diet as tolerated. Hopefully this will help to get her on her regular pain control regimen. S: c/o pain--chronic from her neck, and acute from her surgery. very concerned about getting on her regular pain medicine regimen. Passing gas. No N/V. Moving comfortably in bed before I entered the room. O: alert, nad mmm, anicteric no wob abd soft, inc cdi, appropriately ttp 03/17/17 08:55 Objective: Vital Signs Temp Pulse Resp BP Pulse Ox 36.6 C 67 13 104/68 92 03/17/17 08:00 03/17/17 08:00 03/17/17 08:00 03/17/17 08:00 03/17/17 08:00 Laboratory Results 03/17/17 04:40 03/17/17 04:40 03/16/17 03/17/17 03/18/17 05:59 05:59 05:59 Intake Total 1290 Output Total 190 Balance 1100 PT 13.7 SEC (12.0-15.0) 03/16/17 05:30 INR 1.06 (0.83-1.16) 03/16/17 05:30 ICD10 Worksheet Patient Problems: Problems Problem Status Onset Cholelithiasis Acute Hyponatremia Acute
[2017-03-17] MEDS: PANTOPRAZOLE SODIUM 40 MG in NS 100 ML IV SCH (09:12)
[2017-03-17] MEDS: ERTAPENEM 1 GM in NS 100 ML IV SCH (09:12)
--- NOTE | 2017-03-17 11:12 | GOP ---
[f rep st] OPERATIVE REPORT DATE OF OPERATION: SURGEON: Gurpreet Elliott MD PENCILLER: There was no pharmacy affairs assistant. ANESTHESIOLOGIST: Dr. Grace. PREOPERATIVE DIAGNOSIS: Cholelithiasis, cholecystitis, and possible choledocholithiasis. POSTOPERATIVE DIAGNOSIS: Cholelithiasis, cholecystitis, and possible choledocholithiasis. PROCEDURE PERFORMED: Laparoscopic cholecystectomy with operative cholangiogram. FINDINGS: The patient was found to have multiple gallstones and appeared to have a dilated bile duct with multiple stones in the distal duct. The gallbladder was not particularly inflamed but distende d. DESCRIPTION OF PROCEDURE: The patient was brought to the operating room where she received satisfact ory general endotracheal anesthesia by Dr. Grace. She was placed in supine position, prepped and draped in usual sterile fashion. A periumbilical incision was made. A Veress needle was inserted. Pneumoperitoneum was established. Trocar was introduced. Laparoscope introduced. Good visualizatio n was obtained. Three other trocars were placed in the upper abdomen under direct vision. The gallb ladder was elevated up. The cystic adhesions were taken down. The cystic triangle was carefully dis sected free. The cystic triangle was carefully exposed. The cystic duct and the cystic artery were dissected free. A clear view was obtained, and the bile duct was seen to be enlarged and dilated. T he cystic artery was multiply hemoclipped and divided. The cystic duct was hemoclipped proximally, a nd a short incision was made in the cystic duct, and a cholangiogram catheter was brought in through a separate stab incision and introduced into the cystic duct. Cholangiography was then done, demonst rating a largely dilated common bile duct with good filling of the intrahepatic branches. There dist ally appeared to be mild stenosis at the ampulla with multiple filling defects. The catheter was rem josh. The cystic duct was multiply hemoclipped and divided. The peritoneum of the gallbladder was i ncised. The gallbladder was dissected free from the bed and hepatic fossa and extracted through the upper midline port site. Wound was irrigated. Hemostasis was assured. She tolerated the procedure well, was taken to the recovery room in good condition. PLAN: She will need an ERCP. /[id number]/MODL
--- NOTE | 2017-03-17 12:36 | ASMTCMCOM ---
CM Note CM Note Notes: Met with patient to discuss possible needs for discharge POC. NTBD at this time but per patient she lives with son but on separate floors. To remain in ICU at this time. CM to follow. Date Signed: 03/17/2017 12:35 PM Electronically Signed By:Vickie Flowers RN
--- NOTE | 2017-03-17 13:48 | GOP ---
[f rep st] OPERATIVE REPORT DATE OF OPERATION: 03/15/2017 SURGEON: Gurpreet Elliott MD CMO & PRESIDENT: There was no surgical physician assistant. ANESTHESIOLOGIST: Dr. Grace. PREOPERATIVE DIAGNOSIS: Acute cholecystitis and cholelithiasis. POSTOPERATIVE DIAGNOSIS: Acute cholecystitis and cholelithiasis, plus choledocholithiasis. PROCEDURE PERFORMED: Laparoscopic cholecystectomy, plus operative cholangiography. FINDINGS: ESTIMATED BLOOD LOSS: Less than 20 cc. DESCRIPTION OF PROCEDURE: The patient was taken to the operating room where she received satisfactor y general endotracheal anesthesia by Dr. Grace, placed in supine position, prepped and draped in t he usual sterile fashion. A periumbilical incision was made. A Veress needle inserted. Pneumoperitone um was established. Trocar was introduced. Laparoscope introduced. Good visualization was obtained. T hree other trocars were placed in the upper abdomen under direct vision. The gallbladder was elevated up. Adhesions were taken down. Cystic triangle was carefully exposed. The cystic duct and cystic art neftali were carefully dissected free. The cystic artery was multiply hemoclipped and divided. The cystic duct was hemoclipped proximally. Incision was made in the cystic duct and cholangiogram catheter was brought in through a separate stab incision and positioned in the cystic duct and contained there wi th hemoclips. Cholangiography was done on the C-arm showing a markedly dilated common bile duct with good division into the right and left lobes of the liver, multiple faint filling defect in the distal end of the common duct which tapered down to the point. Some dye went into the duodenum, but was not free flowing. Cholangiogram catheter was then removed. The cystic duct was multiply hemoclipped and divided. Cystic artery was also divided. The peritoneum of the gallbladder was incised and was dissec ngozi free using the Harmonic Scalpel away from the hepatic fossa. Hemostasis was carefully obtained an d the gallbladder was freed up completely and then extracted through the upper midline port site. The wound was irrigated. Hemostasis was assured. Trocars were removed under direct vision. Trocar sit es were closed with 0 Vicryl for the fascia, 4-0 Monocryl subcuticular stitch for the skin. All layer s were infiltrated with Marcaine. COMPLICATIONS: There were no complications. FINDINGS The patient was found to have a markedly distended, but minimally inflamed gallbladder with multiple stones. She had a mildly inflamed cystic duct but a dilated common duct with multiple filling defects in the distal common duct. We did get dye into the GI tract, but only after some pressure. She will need an ERCP exam tomorrow. ESTIMATED BLOOD LOSS: Less than 20 cc. COMPLICATIONS: There were no complications. CMO & PRESIDENT: There was no surgical physician assistant. ANESTHESIOLOGIST: Dr. Grace. She tolerated the procedure well and was taken to the recovery room in good condition. Copy requested to: Dr. Oleg Givens /[id number]/MODL
--- NOTE | 2017-03-17 15:30 | HOSPPROG ---
Hospitalist Progress Note Assessment/Plan: 56 y F with hx of PE/DVT, COPD, chronic pain and continuous narcotic abuse presenting with abdominal pain found to be 2/2 choledocholithiasis # choledocholithiasis: s/p lap jasiel and open cholangiogram by gen surgery, LFTs have increased overnight which is presumably just 2/2 post operative change but will need to continue to monitor. Continue invanz. # acute hypoxic respiratory failure: overnight o2 needs increased and has been as low as 85% on 15L, chest CTA personally reviewed without PE or PNA but significant atelectasis with near complete opacification of LLL. Started on duonebs/albuterol, lasix, IS. Pulmonary following. Will repeat cxr in am. Underlying copd/chf # Chronic pain with continuous opiate use and dependency: making pain control more difficult, patient states today that "everything hurts" complains that "my ears hurt". She is currently receiving oxycodone 15-30mg q2 (home dose is 15 q4) , she is somnolent despite complaining of 10/10 pain and suspect that narcotics are contributing to her respiratory issues. Will decrease pain meds. # hypotension: fluid responsive, abd cT performed to rule out acute intraabdominal process contributing to hypotension # copd: with acute exacerbation, as above, continue nebs, holding off on steroids for now # NICM/chronic systolic heart failure: with EF now improved to 50-55%, has AICD , lasix as above. On asa, lasix, bb, aldactone. # h/o PE/DVT--no longer on AC # polycythemia: presumably secondary to chronic hypoxia # IP status, ICU level care Care plan reviewed with Dr. Real and multidisciplinary care team. Subjective: patient notes that everything hurts, arms, legs, abdomen, ears all hurt. She is very sleepy Objective: Vital Signs Temp Pulse Resp BP Pulse Ox 36.7 C 69 14 102/60 93 03/17/17 12:00 03/17/17 14:58 03/17/17 14:58 03/17/17 12:00 03/17/17 14:58 Laboratory Results 03/17/17 04:40 03/17/17 04:40 03/16/17 03/17/17 03/18/17 05:59 05:59 05:59 Intake Total 1290 Output Total 190 Balance 1100 PT 13.7 SEC (12.0-15.0) 03/16/17 05:30 INR 1.06 (0.83-1.16) 03/16/17 05:30 somnolent, when aroused states she needs pain meds anicteric op clear rrr no mrg dec bs throughout soft diffuse ttp dec bs no cce warm dry well perfused oriented appropriate ICD10 Worksheet Patient Problems: Problems Problem Status Onset Hyponatremia Acute Cholelithiasis Acute
[2017-03-17] MEDS: ACETYLCYSTEINE 20% IH/PO 30 ML VIAL IH SCH ×2 (18:16→22:22)
--- NOTE | 2017-03-17 18:39 | GCON ---
[f rep st] CONSULTATION PULMONARY CRITICAL CARE CONSULTATION DATE OF CONSULTATION: 03/17/2017 REASON FOR CONSULTATION: Intensive care unit. COPD, atelectasis in a patient who is status post cho lecystectomy. HISTORY: The patient is a 56-year-old who was admitted 2 days ago with right upper quadrant pain. S he was found to have cholecystitis and stones. She was taken to the operating room yesterday and lap aroscopic cholecystectomy was performed. Postoperative ERCP was performed. No stones persisted in t he common bile duct. The patient was placed in the intensive care unit postoperatively. Oxygen requirements increased ove rnight. Atelectasis has been found on chest imaging, including a CT angiogram of the chest. There i s no evidence of pulmonary embolic disease. She does have underlying COPD and continues to smoke. S he has a history of chronic pain and opiate use. Pain control has been somewhat difficult postoperat ively. She is otherwise doing well. She does also have a history of heart disease with a nonischemi c cardiomyopathy, and borderline ejection fraction and previous AICD. PAST MEDICAL HISTORY: Remarkable for COPD and ongoing tobacco abuse, nonischemic cardiomyopathy, and AICD/pacer. Most recent ejection fraction was approximately 50%. There is a history of pulmonary h ypertension secondary to her lung disease. She has a history of chronic pain and takes oxycodone at home. She has systemic hypertension. DRUG ALLERGIES: None known. SOCIAL HISTORY: The patient has a supportive family. She continues to smoke cigarettes daily. Sign ificant alcohol is denied. FAMILY HISTORY: Noncontributory. REVIEW OF SYSTEMS: There is a history of distant pulmonary embolic disease and an apparent stroke in the past with little residual deficits. PHYSICAL EXAMINATION: GENERAL: Reveals a woman who is sitting up in the chair. She did not have si gnificant pain at this time. She is eating solid food. VITAL SIGNS: Blood pressure is 96/56, heart rate 75 and paced. Respiratory rate is 18. On nasal cannula oxygen saturations are in the mid-90s. She is afebrile. HEENT: Unremarkable for lymphadenopathy or thyromegaly. There is no jugular tuyet ous distention. CHEST: Reveals decreased breath sounds bilaterally with some scattered rhonchi and expiratory wheezes and significant central congestion with cough. HEART: Paced. A systolic murmur is present. There is no obvious gallop. P2 does appear to be increased. ABDOMEN: Postoperative, t caitlin but relatively soft. Bowel sounds are present. EXTREMITIES: Unremarkable for significant vishnu ma. There are no obvious cords; however, SCDs are in place. NEUROLOGIC: Grossly intact. RADIOLOGIC STUDIES: Are as outlined above. LABORATORY: White blood cell count is 12,000, hematocrit 44, platelets 114,000. PT and INR are norm al. Arterial blood gas postoperatively yesterday showed a pH of 7.44, pCO2 45, and PO2 of 78 on BiPA P. Sodium is 132, potassium 4.1, CO2 30, BUN 9, with a creatinine 0.6, glucose 103. Total bilirubin is 3.9 up from 0.6 yesterday. AST is 234, ALT 137 both normal yesterday. Albumin is 3.1. ASSESSMENT: 1. Acute cholecystitis with choledocholithiasis. Stones were apparently found in the common bile du ct but removed. She is doing well postoperatively. Bilirubin and liver function studies both have b umped. This is probably related to surgery; however, a retained stone in the common bile duct could be present. LFTs will be followed with appropriate interventions if they continue to rise. She is o n Invanz. This will be continued. 2. Chronic obstructive pulmonary disease. The patient does have significant chronic obstructive pul monary disease secondary to ongoing tobacco abuse. She has evidence of bronchitis, probably chronic. She currently has significant mucus, likely resulting in mucus plugging and associated atelectasis and increased hypoxemia of the left lower lobe. Bronchopulmonary therapies will be continued. Mucom yst will be added to her regimen. Chest x-ray will be followed. Bronchoscopy may need to be conside red if her atelectasis does not resolve on its own or increases. 3. Cardiomyopathy. She is stable at this time without evidence of significant fluid retention or co ngestive heart failure. 4. Chronic pain syndrome with chronic narcotic use. This will make pain control perhaps somewhat di fficult in the postoperative setting. I do not think it will be possible to take away all the patien t's pain, either chronic or related to her cholecystectomy. Despite complaining of pain at this time she certainly appears quite comfortable. 5. Hypotension secondary to cholecystitis and a degree of sepsis. 6. History of pulmonary embolic disease/deep venous thrombosis. This is remote. There is no evidenc e of pulmonary embolism by current CT angiogram of the chest. Prophylactic anticoagulation will need to be maintained. PLAN AND RECOMMENDATIONS: The patient will be kept in the intensive care unit. Intravenous fluids w ill be continued. Current medications will be maintained including bronchopulmonary therapies. Acet ylcysteine will be added to her inhaled regimen. Antibiotics will be continued. Her usual outpatien t medications will be continued. Appropriate pain management will be continued. Chest x-ray and lab oratory will be followed. Liver function studies will be reobtained in the a.m. Further plans and recommendations will be made based on her progress over the next 12-24 hours. /[id number]/MODL
[2017-03-17] MEDS: ACETAMINOPHEN 325 MG TAB PO PRN ×2 (19:34→23:49)
[2017-03-18] MEDS: ACETAMINOPHEN 325 MG TAB PO PRN (03:41)
[2017-03-18] MEDS: oxyCODONE IR 15 MG TAB PO PRN ×5 (03:42→20:00)
[2017-03-18 04:02] LABS: % IMMATURE GRANULYOCYTES 0.3 % (0.0-1.1); ABSOLUTE IMMATURE GRANULOCYTES 0.03 10^3/uL (0.00-0.10); ADD DIFF? NO; ADD MORPH? NO; ADD SCAN? NO; ATYPICAL LYMPHOCYTE FLAG 0 (0-99); FRAGMENT RBC FLAG 0 (0-99); HEMATOCRIT 44.9 % (38.0-47.0); HEMOGLOBIN 15.2 g/dL (12.6-16.3); LEFT SHIFT FLG 0 (0-99); LIPEMIA HEMOLYSIS FLAG 90 (0-99); MEAN CELL HEMOGLOBIN 33.2 pg (27.9-34.1); MEAN CELL HEMOGLOBIN CONCENTR. 33.9 g/dL (32.4-36.7); MEAN PLATELET VOLUME 11.4 fL (8.7-11.7); PLATELET CLUMPS FLAG 0 (0-99); PLATELET COUNT 96 10^3/uL (150-400); RED BLOOD CELL COUNT 4.58 10^6/uL (4.18-5.33); RED CELL DISTRIBUTION WIDTH 12.9 % (11.5-15.2)
[2017-03-18 04:31] LABS: ALANINE AMINOTRANSFERASE 106 IU/L (9-52); ALKALINE PHOSPHATASE 133 IU/L (38-126); ANION GAP 7 mEq/L (8-16); ASPARTATE AMINOTRANSFERASE 107 IU/L (14-46); BILIRUBIN,TOTAL 4.4 mg/dL (0.1-1.4); CALCIUM 8.6 mg/dL (8.5-10.4); CARBON DIOXIDE 30 mEq/l (22-31); CHLORIDE 97 mEq/L (97-110); CREATININE 0.6 mg/dL (0.6-1.0); GLOMERULAR FILTRATION RATE > 60; GLUCOSE 92 mg/dL (70-100); POTASSIUM 3.7 mEq/L (3.5-5.2); SODIUM 134 mEq/L (134-144); TOTAL PROTEIN 5.5 g/dL (6.3-8.2)
[2017-03-18 04:38] LABS: BILIRUBIN-CONJUGATED 3.3 mg/dL (0.0-0.5); BILIRUBIN-UNCONJUGATED 1.1 mg/dL (0.0-1.1)
[2017-03-18] MEDS: ACETYLCYSTEINE 20% IH/PO 30 ML VIAL IH SCH ×4 (06:13→21:36)
[2017-03-18] MEDS: IPRATROPIUM/ALBUTEROL 3 ML DEYVIAL IH PRN ×2 (06:13→11:25)
[2017-03-18] MEDS ORDERED: ACETYLCYSTEINE 10% 30 ML VIAL IH PRN (08:43)
[2017-03-18] MEDS ORDERED: ACETYLCYSTEINE 10% 30 ML VIAL IH SCH (08:45)
[2017-03-18] MEDS: GABAPENTIN 300 MG CAP PO SCH ×2 (10:40→22:07)
[2017-03-18] MEDS: ASPIRIN EC 81 MG TAB PO SCH (10:40)
[2017-03-18] MEDS: PANTOPRAZOLE SODIUM 40 MG in NS 100 ML IV SCH (10:41)
[2017-03-18] MEDS: ERTAPENEM 1 GM in NS 100 ML IV SCH (10:42)
[2017-03-18] MEDS: SENNOSIDES/DOCUSATE SODIUM TAB PO SCH ×3 (10:45→22:07)
[2017-03-18] MEDS: ENOXAPARIN 40 MG/0.4 ML SYR SC SCH (11:47)
[2017-03-18] MEDS: NICOTINE 21 MG/24 HR PATCH TD SCH (12:40)
--- NOTE | 2017-03-18 13:26 | PDINTPN ---
Cosmetic Assembler Progress Note Assessment/Plan: Assessment: Acute cholecystitis/stones. Status post cholecystectomy. Doing well postoperatively. Has some right upper quadrant pain as would be expected. Clinically this seems to be well controlled. Increased bilirubin and liver function tests. These bumped yesterday. Bilirubin is slightly higher but LFTs are coming down. Postoperative evaluation did not suggest a common bile duct stone. These numbers will likely continue to now decrease. COPD, chronic bronchitis. Ongoing tobacco abuse. Right upper lobe infiltrate. New today or significantly increased. Probably secondary to aspiration. She is on Invanz and bronchopulmonary therapies and clinically is stable. History of cardiomyopathy, congestive heart failure, pacer. Stable. On Lasix. Hypotension: Resolved. Chronic pain syndrome, chronic narcotic use. Postoperatively her pain seems to be adequately controlled but she continues to complain of various pains. She is asking for more narcotics despite appearing quite comfortable and being quite sedated at times. Alternative pain control preparations to narcotics should be employed. DVT prophylaxis: SCDs. Will start Lovenox. Plan: The patient will be kept in the intensive care unit for now. She can transition to step-down unit status. Continue Invanz and bronchopulmonary therapies. Appropriate pain control will be maintained. Lidocaine patches and Toradol can be considered. Laboratory, LFTs, and chest x-ray will be followed. A nicotine patch will be given. 35 minutes of clinic time spent directly with the patient today. Discussed with hospitalist, nursing, social media manager, and the ICU multi disciplinary team. Subjective: less congestion, breathing is better. Complains of some abdominal pain with coughing, as expected. Asking for more pain medications despite being relatively comfortable and somewhat somnolent Objective: Vital Signs Temp Pulse Resp BP Pulse Ox 36.7 C 87 17 89/69 L 91 L 03/17/17 12:00 03/18/17 12:00 03/18/17 12:00 03/18/17 12:00 03/18/17 12:00 Laboratory Results 03/18/17 03:55 03/18/17 03:55 03/17/17 03/18/17 03/19/17 05:59 05:59 05:59 Intake Total 1290 1662 Output Total 190 425 Balance 1100 1237 PT 13.7 SEC (12.0-15.0) 03/16/17 05:30 INR 1.06 (0.83-1.16) 03/16/17 05:30 Laboratory Tests 03/18/17 03:55 Calcium 8.6 Total Bilirubin 4.4 H AST 107 H ALT 106 H Albumin 3.0 L CXR: Increased right upper lobe infiltrate. Improved basilar atelectasis. Physical Exam - Physical Exam General Appearance: alert, no apparent distress, other ( sitting up in bed eating) EENT: PERRL/EOMI, scleral icterus (R), scleral icterus (L), other ( nasal cannula at 6 L) Neck: normal inspection ( no JVD) Respiratory: decreased breath sounds, rales ( few nonspecific rales at the bases ), rhonchi ( rhonchi present centrally, decreased compared with yesterday), wheezing ( few expiratory wheezes, not tight), prolonged expiration, No normal breath sounds, No respiratory distress, No accessory muscle use Cardiac/Chest: regular rate, rhythm ( paced), systolic murmur Abdomen: normal bowel sounds ( good bowel sounds today), non-tender ( tender on the right), soft, other ( passing gas) Pelvic Exam: other ( no Navarro catheter) Skin: normal color, warm/dry Extremities: pedal edema ( trace) Neuro/Psych: no motor/sensory deficits ( moves all extremities equally), No cognition abnormalities ICD10 Worksheet Patient Problems: Problems Problem Status Onset Cholelithiasis Acute Hyponatremia Acute
[2017-03-18] MEDS ORDERED: KETOROLAC 30 MG/1 ML SDV IVP PRN (13:54)
[2017-03-18] MEDS: LIDOCAINE 5% 1 EA PATCH TD SCH (16:09)
[2017-03-18] MEDS: IPRATROPIUM/ALBUTEROL 3 ML DEYVIAL IH SCH ×2 (16:39→21:36)
--- NOTE | 2017-03-18 17:58 | HOSPPROG ---
Hospitalist Progress Note Assessment/Plan: 56 y F with hx of PE/DVT, COPD, chronic pain and continuous narcotic abuse presenting with abdominal pain found to be 2/2 choledocholithiasis # choledocholithiasis: s/p lap jasiel and open cholangiogram by gen surgery, LFTs now trending back down. Continue invanz. # acute hypoxic respiratory failure: improved and now down to 6L, on cxr all seems to be related to atelectasis, no doubt driven by hypoventilation from somnolence and narcotic use, possibly some component of aspiration. As below, limiting pain medications as we are able # Chronic pain with continuous opiate use and dependency: making pain control more difficult and patient exhibiting concerning patterns around narcotic use and behaviors around narcotic seeking, she appears comfortable and somnolent but continues to request higher doses of pain medications. Explained to her at length that we would not increase her pain medications. She is followed by Dr. Tenorio for her pain meds and would not dc her on additional pain medications without discussing with him. # hypotension: fluid responsive, improved # copd: with mild acute exacerbation, as above, continue nebs # NICM/chronic systolic heart failure: with EF now improved to 50-55%, has AICD , lasix as above. On asa, lasix, bb, aldactone. # h/o PE/DVT--no longer on AC # polycythemia: presumably secondary to chronic hypoxia # IP status, ICU level care Care plan reviewed with Dr. Real and multidisciplinary care team. Subjective: no significant overnight events, patient continues to perseverate on wanting more pain medications despite being very sleepy and not breathing well, family members very aggressive with staff overnight in demanding medications for her as well Objective: Vital Signs Temp Pulse Resp BP Pulse Ox 36.7 C 75 13 97/48 L 93 03/17/17 12:00 03/18/17 16:46 03/18/17 16:46 03/18/17 14:00 03/18/17 16:46 Laboratory Results 03/18/17 03:55 03/18/17 03:55 03/17/17 03/18/17 03/19/17 05:59 05:59 05:59 Intake Total 1290 1662 550 Output Total 190 425 Balance 1100 1237 550 PT 13.7 SEC (12.0-15.0) 03/16/17 05:30 INR 1.06 (0.83-1.16) 03/16/17 05:30 somnolent, when aroused states she needs pain meds anicteric op clear rrr no mrg dec bs throughout soft diffuse ttp dec bs no cce warm dry well perfused oriented appropriate perseverates on her pain medications and insisting she takes more at home than we are giving her ICD10 Worksheet Patient Problems: Problems Problem Status Onset Cholelithiasis Acute Hyponatremia Acute
--- NOTE | 2017-03-18 18:57 | SOAPPROG ---
SOAP Progress Note Assessment/Plan: Assessment: AFEBRILE/ NEW RUL INFILTRATE LIKELY ASPIRATION/ LFTs STILL ELEVATED AFTER ERCP Plan:CARE PER IM AT THIS POINT 03/18/17 18:56 Objective: Vital Signs Temp Pulse Resp BP Pulse Ox 37.1 C 101 H 19 128/76 H 91 L 03/18/17 18:00 03/18/17 18:00 03/18/17 18:00 03/18/17 18:00 03/18/17 18:00 Laboratory Results 03/18/17 03:55 03/18/17 03:55 03/17/17 03/18/17 03/19/17 05:59 05:59 05:59 Intake Total 1290 1662 550 Output Total 190 425 Balance 1100 1237 550 PT 13.7 SEC (12.0-15.0) 03/16/17 05:30 INR 1.06 (0.83-1.16) 03/16/17 05:30 ICD10 Worksheet Patient Problems: Problems Problem Status Onset Cholelithiasis Acute Hyponatremia Acute
[2017-03-18] MEDS: PATCH REMOVAL 1 EA PATCH TD SCH (22:07)
[2017-03-19] MEDS: SENNOSIDES/DOCUSATE SODIUM TAB PO SCH ×2 (00:16→20:35)
[2017-03-19] MEDS: LORazepam 2 MG/ML INJ IVP PRN ×2 (00:23→09:47)
[2017-03-19] MEDS: oxyCODONE IR 15 MG TAB PO PRN ×5 (04:04→20:39)
[2017-03-19] MEDS: ACETYLCYSTEINE 20% IH/PO 30 ML VIAL IH SCH ×4 (05:44→23:28)
[2017-03-19] MEDS: IPRATROPIUM/ALBUTEROL 3 ML DEYVIAL IH SCH ×4 (05:44→21:10)
[2017-03-19] MEDS: GABAPENTIN 300 MG CAP PO SCH ×2 (08:10→20:35)
[2017-03-19] MEDS: ASPIRIN EC 81 MG TAB PO SCH (08:10)
[2017-03-19] MEDS: ERTAPENEM 1 GM in NS 100 ML IV SCH (08:11)
[2017-03-19] MEDS: NICOTINE 21 MG/24 HR PATCH TD SCH (08:11)
[2017-03-19] MEDS: LIDOCAINE 5% 1 EA PATCH TD SCH (08:11)
[2017-03-19] MEDS: ENOXAPARIN 40 MG/0.4 ML SYR SC SCH (08:11)
[2017-03-19] MEDS: PANTOPRAZOLE SODIUM 40 MG in NS 100 ML IV SCH (09:47)
[2017-03-19 12:50] LABS: BILIRUBIN-CONJUGATED 2.1 mg/dL (0.0-0.5); BILIRUBIN-UNCONJUGATED 0.9 mg/dL (0.0-1.1); TOTAL PROTEIN 5.9 g/dL (6.3-8.2)
--- NOTE | 2017-03-19 13:58 | PDINTPN ---
High School Foreign Language Tutor Progress Note Assessment/Plan: Assessment: Acute cholecystitis/stones. Status post cholecystectomy 03/16. Doing well postoperatively. Has some right upper quadrant pain as would be expected. Increased bilirubin and liver function tests. These bumped postoperatively, now coming down. No evidence of a retained stone. COPD, chronic bronchitis. Ongoing tobacco abuse. Right upper lobe infiltrate 03/18. Probably secondary to aspiration. She is on Invanz and bronchopulmonary therapies and clinically is stable. History of cardiomyopathy, congestive heart failure, pacer. Stable. On Lasix. Hypotension: Resolved. Chronic pain syndrome, chronic narcotic use. Postoperatively her pain seems to be adequately controlled but she continues to complain of various pains. She is asking for more narcotics despite appearing quite comfortable and being quite sedated at times. Alternative pain control preparations to narcotics have been added (torodol and a lidoderm patch). DVT prophylaxis: SCDs/Lovenox. Plan: Continue care in the intensive care unit for now as step-down unit status. Continue Invanz and bronchopulmonary therapies. Appropriate pain control will be maintained. Laboratory, LFTs, and chest x-ray will be followed intermittently. 25 minutes of critical care time spent directly with the patient. Discussed with nursing, surgery, and the ICU multi disciplinary team. Subjective: Sitting up, eating. Some cough and congestion. Has persistent pain, various places and asking for more meds despite appearing comfortable. Objective: Vital Signs Temp Pulse Resp BP Pulse Ox 36.8 C 110 H 16 109/56 L 95 03/19/17 12:36 03/19/17 12:04 03/19/17 12:04 03/19/17 10:00 03/19/17 12:04 Laboratory Results 03/18/17 03:55 03/18/17 03:55 03/18/17 03/19/17 03/20/17 05:59 05:59 05:59 Intake Total 1662 1150 Output Total 425 6 Balance 1237 1144 PT 13.7 SEC (12.0-15.0) 03/16/17 05:30 INR 1.06 (0.83-1.16) 03/16/17 05:30 Laboratory Tests 03/19/17 12:10 Total Bilirubin 3.0 H AST 56 H ALT 68 H Albumin 3.0 L Physical Exam - Physical Exam General Appearance: alert, no apparent distress EENT: other (On OxyMask) Neck: normal inspection Respiratory: decreased breath sounds, rales (On right), rhonchi (Scattered bilaterally), wheezing (Scattered expiratory wheezes, not tight), prolonged expiration Cardiac/Chest: tachycardia Abdomen: soft, No normal bowel sounds (Decreased, present), No non-tender ( Tender in the right side) Pelvic Exam: other (No Navarro catheter) Skin: normal color, warm/dry Extremities: pedal edema (Trace +) Neuro/Psych: no motor/sensory deficits, No cognition abnormalities ICD10 Worksheet Patient Problems: Problems Problem Status Onset Hyponatremia Acute Cholelithiasis Acute
--- NOTE | 2017-03-19 14:52 | ASMTCMCOM ---
CM Note CM Note Notes: Met w/pt yesterday to discuss dc poc. She said she lives with son and has good family support and people around to help her including many grandchildren. No dc needs identified at this point. Pain control has been issue (chronic pain, on chronic narcotics). Date Signed: 03/19/2017 02:51 PM Electronically Signed By:Rohini Ruiz RN
--- NOTE | 2017-03-19 15:02 | HOSPPROG ---
Hospitalist Progress Note Assessment/Plan: 56 y F with hx of PE/DVT, COPD, chronic pain and continuous narcotic abuse presenting with abdominal pain found to be 2/2 choledocholithiasis choledocholithiasis: s/p lap jasiel and open cholangiogram by gen surgery, LFTs now trending back down. Continue invanz. ercp yesterday- no retained stones lft's now trending down acute hypoxic respiratory failure: improved and now down to 6L, on cxr all seems to be related to atelectasis, no doubt driven by hypoventilation from somnolence and narcotic use, possibly some component of aspiration. As below, limiting pain medications as we are able cxr w RUL infiltrate (interp by me) c/w aspiration Chronic pain with continuous opiate use and dependency: making pain control more difficult and patient exhibiting concerning patterns around narcotic use and behaviors around narcotic seeking, she appears comfortable and somnolent but continues to request higher doses of pain medications. Explained to her at length that we would not increase her pain medications. She is followed by Dr. Tenorio for her pain meds and would not dc her on additional pain medications without discussing with him. today (03/19) asking for increase in pain meds she is alert now but many reports of somnolence so will not increase pain meds at this point hypotension: fluid responsive, improved copd: with mild acute exacerbation, as above, continue nebs NICM/chronic systolic heart failure: with EF now improved to 50-55%, has AICD, lasix as above. On asa, lasix, bb, aldactone. h/o PE/DVT--no longer on AC polycythemia: presumably secondary to chronic hypoxia IP status, ICU level care Care plan reviewed with Dr. Real and multidisciplinary care team. Subjective: case d/w lisha pabon. ercp yesterday Objective: Vital Signs Temp Pulse Resp BP Pulse Ox 36.8 C 92 19 98/43 L 96 03/19/17 12:36 03/19/17 14:00 03/19/17 14:00 03/19/17 14:00 03/19/17 14:00 Laboratory Results 03/18/17 03:55 03/18/17 03:55 03/18/17 03/19/17 03/20/17 05:59 05:59 05:59 Intake Total 1662 1150 Output Total 425 6 Balance 1237 1144 PT 13.7 SEC (12.0-15.0) 03/16/17 05:30 INR 1.06 (0.83-1.16) 03/16/17 05:30 - Physical Exam Constitutional: no apparent distress, appears nourished Eyes: PERRL, anicteric sclera Ears, Nose, Mouth, Throat: moist mucous membranes, hearing normal Cardiovascular: regular rate and rhythym, tachycardia Respiratory: no respiratory distress, no rales or rhonchi Gastrointestinal: normoactive bowel sounds, soft, non-tender abdomen Genitourinary: no bladder fullness, No sullivan in urethra Skin: warm, normal color Musculoskeletal: full muscle strength Neurologic: AAOx3 ICD10 Worksheet Patient Problems: Problems Problem Status Onset Cholelithiasis Acute Hyponatremia Acute
[2017-03-19] MEDS: PATCH REMOVAL 1 EA PATCH TD SCH (20:41)
--- NOTE | 2017-03-19 22:11 | SOAPPROG ---
SOAP Progress Note Assessment/Plan: Assessment: AFEBRILE/ NEW RUL INFILTRATE LIKELY ASPIRATION/ LFTs STILL ELEVATED AFTER ERCP Plan:CARE PER IM AT THIS POINT 03/18/17 18:56 03/19/17 22:09 IMPROVING, CXR BETTER/ AFEBRILE CHEST WHEEZING/ VS STABLE/ SOME HYPOXEMIA EVEN ON O2 ABD SOFT, NONTENDER/ WOUNDS OK PLAN ADVANCE DIET Objective: Vital Signs Temp Pulse Resp BP Pulse Ox 37.2 C 105 H 14 104/57 L 95 03/19/17 18:00 03/19/17 21:10 03/19/17 21:10 03/19/17 18:00 03/19/17 21:10 Laboratory Results 03/18/17 03:55 03/18/17 03:55 03/18/17 03/19/17 03/20/17 05:59 05:59 05:59 Intake Total 1662 1150 300 Output Total 425 6 Balance 1237 1144 300 PT 13.7 SEC (12.0-15.0) 03/16/17 05:30 INR 1.06 (0.83-1.16) 03/16/17 05:30 ICD10 Worksheet Patient Problems: Problems Problem Status Onset Cholelithiasis Acute Hyponatremia Acute
[2017-03-19] MEDS: ALBUTEROL 3 ML DEYVIAL IH PRN (23:28)
[2017-03-20] MEDS: LORazepam 2 MG/ML INJ IVP PRN (00:05)
[2017-03-20] MEDS: ALBUTEROL 3 ML DEYVIAL IH PRN ×2 (01:39→22:33)
[2017-03-20] MEDS: ACETYLCYSTEINE 20% IH/PO 30 ML VIAL IH SCH ×4 (04:58→22:33)
[2017-03-20] MEDS: IPRATROPIUM/ALBUTEROL 3 ML DEYVIAL IH SCH ×4 (04:58→20:09)
[2017-03-20] MEDS: FUROSEMIDE 40 MG TAB PO SCH ×2 (06:24→14:26)
[2017-03-20] MEDS: oxyCODONE IR 15 MG TAB PO PRN ×6 (07:15→23:20)
[2017-03-20] MEDS: SPIRONOLACTONE 25 MG TAB PO SCH (08:45)
[2017-03-20] MEDS ORDERED: CARVEDILOL 3.125 MG TAB PO SCH (08:45)
[2017-03-20] MEDS: NICOTINE 21 MG/24 HR PATCH TD SCH (08:48)
[2017-03-20] MEDS: GABAPENTIN 300 MG CAP PO SCH ×2 (08:49→20:00)
[2017-03-20] MEDS: ASPIRIN EC 81 MG TAB PO SCH (08:49)
[2017-03-20] MEDS: ENOXAPARIN 40 MG/0.4 ML SYR SC SCH (08:49)
[2017-03-20] MEDS: SENNOSIDES/DOCUSATE SODIUM TAB PO SCH ×2 (08:49→20:00)
[2017-03-20] MEDS: LIDOCAINE 5% 1 EA PATCH TD SCH (08:49)
[2017-03-20] MEDS: ERTAPENEM 1 GM in NS 100 ML IV SCH (08:54)
[2017-03-20] MEDS ORDERED: PANTOPRAZOLE SODIUM 40 MG TAB PO SCH (09:00)
--- NOTE | 2017-03-20 12:25 | PDINTPN ---
Artist Model Progress Note Assessment/Plan: Assessment: Acute cholecystitis/stones. Status post cholecystectomy. Doing well postoperatively. Decreasing right upper quadrant pain. Eating. Clinically this seems to be well controlled. Increased bilirubin and liver function tests. Bilirubin and LFTs are coming down. Postoperative evaluation did not suggest a common bile duct stone. COPD, chronic bronchitis. Ongoing tobacco abuse. Right upper lobe infiltrate. Chest x-ray improving. Probably secondary to aspiration. She is on Invanz and bronchopulmonary therapies and clinically is better. History of cardiomyopathy, congestive heart failure, pacer. Stable. On Lasix. Hypotension: Resolved. Chronic pain syndrome, chronic narcotic use. She seems to be more comfortable today, and is not asking for additional pain medications or narcotics. DVT prophylaxis: On Lovenox. Plan: Continue care. She can transition to Med-surg status. Continue Invanz and bronchopulmonary therapies. Appropriate pain control will be maintained. Laboratory, LFTs, and chest x-ray will be followed intermittently. 30 minutes of clinic time spent directly with the patient today. Discussed with hospitalist, nursing, geriatric social work professor, and the ICU multi disciplinary team. Subjective: Up in chair. Comfortable. Says breathing is better. Still with cough and congestion. Pain is improving although still present. Anxious to go home in the next several days. Objective: Vital Signs Temp Pulse Resp BP Pulse Ox 37.2 C 96 18 113/82 H 98 03/20/17 06:00 03/20/17 11:15 03/20/17 10:00 03/20/17 10:00 03/20/17 11:15 Laboratory Results 03/18/17 03:55 03/18/17 03:55 03/19/17 03/20/17 03/21/17 05:59 05:59 05:59 Intake Total 1150 1100 Output Total 6 1200 850 Balance 1144 -100 -850 PT 13.7 SEC (12.0-15.0) 03/16/17 05:30 INR 1.06 (0.83-1.16) 03/16/17 05:30 Physical Exam - Physical Exam General Appearance: alert, no apparent distress, other ( Up in chair) EENT: PERRL/EOMI, other ( nasal cannula decreased to 3 L) Neck: normal inspection ( no JVD) Respiratory: decreased breath sounds ( scattered wheezes, central rhonchi with cough. Few rales), rales ( few), rhonchi ( scattered with cough), wheezing ( scattered, not tight) Cardiac/Chest: regular rate, rhythm ( paced), systolic murmur Abdomen: normal bowel sounds, soft, No non-tender ( mildly tender) Skin: normal color, warm/dry Extremities: pedal edema ( trace) Neuro/Psych: no motor/sensory deficits, No cognition abnormalities ICD10 Worksheet Patient Problems: Problems Problem Status Onset Cholelithiasis Acute Hyponatremia Acute
--- NOTE | 2017-03-20 12:49 | SOAPPROG ---
SOAP Progress Note Assessment/Plan: Assessment: AFEBRILE/ NEW RUL INFILTRATE LIKELY ASPIRATION/ LFTs STILL ELEVATED AFTER ERCP Plan:CARE PER IM AT THIS POINT 03/18/17 18:56 03/19/17 22:09 IMPROVING, CXR BETTER/ AFEBRILE CHEST WHEEZING/ VS STABLE/ SOME HYPOXEMIA EVEN ON O2 ABD SOFT, NONTENDER/ WOUNDS OK PLAN ADVANCE DIET 03/20/17 12:47 CONTINUES TO IMPROVE ON BOTH SURGICAL POSITION AND RESPIRATORY STATUS/CHEST X- RAY IS PENDING/ABDOMEN SOFT, WOUND OKAY/AFEBRILE/COUGHING UP SOME JUNK/EATING OKAY PLAN IS TO CONTINUE RESPIRATORY TREATMENTS AND ADVANCING DIET Objective: Vital Signs Temp Pulse Resp BP Pulse Ox 37.2 C 96 18 113/82 H 98 03/20/17 06:00 03/20/17 11:15 03/20/17 10:00 03/20/17 10:00 03/20/17 11:15 Laboratory Results 03/18/17 03:55 03/18/17 03:55 03/19/17 03/20/17 03/21/17 05:59 05:59 05:59 Intake Total 1150 1100 Output Total 6 1200 850 Balance 1144 -100 -850 PT 13.7 SEC (12.0-15.0) 03/16/17 05:30 INR 1.06 (0.83-1.16) 03/16/17 05:30 ICD10 Worksheet Patient Problems: Problems Problem Status Onset Cholelithiasis Acute Hyponatremia Acute
--- NOTE | 2017-03-20 15:09 | HOSPPROG ---
Hospitalist Progress Note Assessment/Plan: * Choledocholithiasis s/p lap jasiel (with sepsis POA) -no retained stones on ERCP -IV invanz * Acute respiratory failure - due to atelectasis/lobar collapse -CTA negative for PE -continue aggressive pulmonary hygiene * Continuous narcotic dependency * Chronic systolic CHF - non-ischemic cardiomyopathy s/p AICD -most recent EF 50% (previously 15%) -resume Coreg - titrate up dose as BP allows * Tobacco dependence - probable COPD * h/o PE/DVT - off anticoag Subjective: No complaints other than pain Objective: Vital Signs Temp Pulse Resp BP Pulse Ox 37.2 C 96 18 113/82 H 98 03/20/17 06:00 03/20/17 11:15 03/20/17 10:00 03/20/17 10:00 03/20/17 11:15 Laboratory Results 03/18/17 03:55 03/18/17 03:55 03/19/17 03/20/17 03/21/17 05:59 05:59 05:59 Intake Total 1150 1100 Output Total 6 1200 850 Balance 1144 -100 -850 PT 13.7 SEC (12.0-15.0) 03/16/17 05:30 INR 1.06 (0.83-1.16) 03/16/17 05:30 d/w DR. Jung gaffney for transfer out of ICU CTA chest - no PE< complete collapse of lobe - Physical Exam Constitutional: no apparent distress, appears nourished, not in pain Cardiovascular: regular rate and rhythym, no murmur, rub, or gallop Respiratory: no respiratory distress, no rales or rhonchi, clear to auscultation Gastrointestinal: normoactive bowel sounds, soft, non-tender abdomen, no palpable masses Skin: no rashes or abrasions, no fluctuance, no induration Neurologic: AAOx3, sensation intact bilaterally Psychiatric: interacting appropriately, not anxious, not encephalopathic, thought process linear ICD10 Worksheet Patient Problems: Problems Problem Status Onset Cholelithiasis Acute Hyponatremia Acute
[2017-03-20] MEDS: CARVEDILOL 3.125 MG TAB PO SCH (17:14)
[2017-03-20] MEDS: PATCH REMOVAL 1 EA PATCH TD SCH (20:00)
[2017-03-21 05:11] LABS: % IMMATURE GRANULYOCYTES 0.3 % (0.0-1.1); ABSOLUTE IMMATURE GRANULOCYTES 0.04 10^3/uL (0.00-0.10); ADD DIFF? NO; ADD MORPH? NO; ADD SCAN? NO; ATYPICAL LYMPHOCYTE FLAG 10 (0-99); FRAGMENT RBC FLAG 0 (0-99); HEMOGLOBIN 14.9 g/dL (12.6-16.3); LEFT SHIFT FLG 0 (0-99); LIPEMIA HEMOLYSIS FLAG 90 (0-99); MEAN CELL HEMOGLOBIN 32.5 pg (27.9-34.1); MEAN CELL HEMOGLOBIN CONCENTR. 33.9 g/dL (32.4-36.7); MEAN CELL VOLUME 96.1 fL (81.5-99.8); MEAN PLATELET VOLUME 11.5 fL (8.7-11.7); PLATELET CLUMPS FLAG 0 (0-99); PLATELET COUNT 115 10^3/uL (150-400); RED BLOOD CELL COUNT 4.58 10^6/uL (4.18-5.33); RED CELL DISTRIBUTION WIDTH 12.6 % (11.5-15.2)
[2017-03-21] MEDS: oxyCODONE IR 15 MG TAB PO PRN ×5 (05:18→22:18)
[2017-03-21] MEDS: FUROSEMIDE 40 MG TAB PO SCH ×2 (05:19→13:42)
[2017-03-21 05:25] LABS: ALANINE AMINOTRANSFERASE 48 IU/L (9-52); ALBUMIN 3.1 g/dL (3.5-5.0); ALKALINE PHOSPHATASE 181 IU/L (38-126); ANION GAP 9 mEq/L (8-16); ASPARTATE AMINOTRANSFERASE 25 IU/L (14-46); BILIRUBIN,TOTAL 1.5 mg/dL (0.1-1.4); CALCIUM 8.6 mg/dL (8.5-10.4); CARBON DIOXIDE 31 mEq/l (22-31); CHLORIDE 91 mEq/L (97-110); CREATININE 0.4 mg/dL (0.6-1.0); GLOMERULAR FILTRATION RATE > 60; GLUCOSE 112 mg/dL (70-100); POTASSIUM 3.1 mEq/L (3.5-5.2); SODIUM 131 mEq/L (134-144); TOTAL PROTEIN 5.9 g/dL (6.3-8.2)
[2017-03-21] MEDS: IPRATROPIUM/ALBUTEROL 3 ML DEYVIAL IH SCH ×4 (05:27→21:47)
[2017-03-21] MEDS: ACETYLCYSTEINE 20% IH/PO 30 ML VIAL IH SCH ×4 (05:27→21:48)
[2017-03-21] MEDS ORDERED: POTASSIUM CL 20 MEQ TAB PO ONE (06:17)
[2017-03-21] MEDS: SENNOSIDES/DOCUSATE SODIUM TAB PO SCH ×2 (08:39→19:58)
[2017-03-21] MEDS: SPIRONOLACTONE 25 MG TAB PO SCH (08:39)
[2017-03-21] MEDS: ENOXAPARIN 40 MG/0.4 ML SYR SC SCH (08:40)
[2017-03-21] MEDS: GABAPENTIN 300 MG CAP PO SCH ×2 (08:40→20:00)
[2017-03-21] MEDS: CARVEDILOL 3.125 MG TAB PO SCH ×2 (08:40→17:55)
[2017-03-21] MEDS: NICOTINE 21 MG/24 HR PATCH TD SCH (08:41)
[2017-03-21] MEDS: LIDOCAINE 5% 1 EA PATCH TD SCH (08:41)
[2017-03-21] MEDS: ASPIRIN EC 81 MG TAB PO SCH (09:18)
[2017-03-21] MEDS: ERTAPENEM 1 GM in NS 100 ML IV SCH (09:43)
--- NOTE | 2017-03-21 11:01 | SOAPPROG ---
SOAP Progress Note Assessment/Plan: Assessment: Acute cholecystitis/stones. Status post cholecystectomy. Doing well postoperatively. Decreasing right upper quadrant pain. Eating. Increased bilirubin and liver function tests. Bilirubin and LFTs are coming down. Postoperative evaluation did not suggest a common bile duct stone. COPD, chronic bronchitis. Ongoing tobacco abuse. Right upper lobe infiltrate/Pn. Chest x-ray improving. Probably secondary to aspiration. She is on Invanz and bronchopulmonary therapies and clinically is better. History of cardiomyopathy, congestive heart failure, pacer. Stable. On Lasix. Hypotension: Resolved. Chronic pain syndrome, chronic narcotic use. She seems to be more comfortable today, and is not asking for additional pain medications or narcotics. DVT prophylaxis: On Lovenox. Plan: Continue care in hospital today. Continue bronchopulmonary therapies. Stop Invanz, start Augmentin to complete a total of a 10 day course. Continue pain medications. Repeat chest x-ray in a.m. Probably home tomorrow. Oxygen requirements on discharge will need to be defined. Subjective: Feels better, up in chair eating, no oxygen in place. Decreased cough and mucus. Decreased shortness of breath. Says she no longer needs oxygen but has been on OxyMask intermittently. Still has abdominal pain primarily with cough Objective: Vital Signs Temp Pulse Resp BP Pulse Ox 37.2 C 100 18 101/52 L 92 03/20/17 23:44 03/21/17 08:00 03/21/17 08:00 03/21/17 08:00 03/21/17 08:00 Laboratory Results 03/21/17 05:07 03/21/17 05:07 03/20/17 03/21/17 03/22/17 05:59 05:59 05:59 Intake Total 1100 750 Output Total 1200 1170 Balance -100 -420 PT 13.7 SEC (12.0-15.0) 03/16/17 05:30 INR 1.06 (0.83-1.16) 03/16/17 05:30 Laboratory Tests 03/21/17 05:07 Total Bilirubin 1.5 H AST 25 ALT 48 Albumin 3.1 L Physical Exam - Physical Exam General Appearance: alert, no apparent distress EENT: other (Nasal cannula currently off) Neck: normal inspection (No JVD) Respiratory: decreased breath sounds, rhonchi (Decreasing, some present with cough), wheezing (Scattered comma decreased, mild), No rales Cardiac/Chest: regular rate, rhythm Abdomen: soft, No non-tender (Remains tender to palpation) Skin: normal color, warm/dry Extremities: No pedal edema Neuro/Psych: no motor/sensory deficits, No cognition abnormalities ICD10 Worksheet Patient Problems: Problems Problem Status Onset Hyponatremia Acute Cholelithiasis Acute
--- NOTE | 2017-03-21 11:58 | SOAPPROG ---
SOAP Progress Note Assessment/Plan: Assessment: AFEBRILE/ NEW RUL INFILTRATE LIKELY ASPIRATION/ LFTs STILL ELEVATED AFTER ERCP Plan:CARE PER IM AT THIS POINT 03/18/17 18:56 03/19/17 22:09 IMPROVING, CXR BETTER/ AFEBRILE CHEST WHEEZING/ VS STABLE/ SOME HYPOXEMIA EVEN ON O2 ABD SOFT, NONTENDER/ WOUNDS OK PLAN ADVANCE DIET 03/20/17 12:47 CONTINUES TO IMPROVE ON BOTH SURGICAL POSITION AND RESPIRATORY STATUS/CHEST X- RAY IS PENDING/ABDOMEN SOFT, WOUND OKAY/AFEBRILE/COUGHING UP SOME JUNK/EATING OKAY PLAN IS TO CONTINUE RESPIRATORY TREATMENTS AND ADVANCING DIET 03/21/17 11:58 AFEBRILE/V5 SIGNS STABLE/RESPIRATORY STATUS IMPROVING/LFTS NORMALIZING/WOUND OKAY STATUS POST LAP CHOLY AND ERCP/ON ANTIBIOTICS FOR ASPIRATION PNEUMONIA/ HOME SOON 03/21/17 14:41 Objective: Vital Signs Temp Pulse Resp BP Pulse Ox 37.2 C 101 H 18 101/52 L 100 03/20/17 23:44 03/21/17 10:57 03/21/17 08:00 03/21/17 08:00 03/21/17 10:57 Laboratory Results 03/21/17 05:07 03/21/17 05:07 03/20/17 03/21/17 03/22/17 05:59 05:59 05:59 Intake Total 1100 750 Output Total 1200 1170 Balance -100 -420 PT 13.7 SEC (12.0-15.0) 03/16/17 05:30 INR 1.06 (0.83-1.16) 03/16/17 05:30 ICD10 Worksheet Patient Problems: Problems Problem Status Onset Cholelithiasis Acute Hyponatremia Acute
--- NOTE | 2017-03-21 14:32 | HOSPPROG ---
Hospitalist Progress Note Assessment/Plan: * Choledocholithiasis s/p lap jasiel (with sepsis POA) -no retained stones on ERCP -LFT improving * Aspiration PNA -IV invanz - now PO augmentin * Acute respiratory failure - due to atelectasis/lobar collapse -CTA negative for PE -continue aggressive pulmonary hygiene * Continuous narcotic dependency * Chronic systolic CHF - non-ischemic cardiomyopathy s/p AICD -most recent EF 50% (previously 15%) -resume Coreg - titrate up dose as BP allows * Tobacco dependence - probable COPD * h/o PE/DVT - off anticoag Subjective: Still with lots of abdominal pain - she thinks it's from days of coughing Objective: Vital Signs Temp Pulse Resp BP Pulse Ox 37.2 C 101 H 18 101/52 L 100 03/20/17 23:44 03/21/17 10:57 03/21/17 08:00 03/21/17 08:00 03/21/17 10:57 Laboratory Results 03/21/17 05:07 03/21/17 05:07 03/20/17 03/21/17 03/22/17 05:59 05:59 05:59 Intake Total 1100 750 Output Total 1200 1170 Balance -100 -420 PT 13.7 SEC (12.0-15.0) 03/16/17 05:30 INR 1.06 (0.83-1.16) 03/16/17 05:30 - Physical Exam Constitutional: no apparent distress, appears nourished, not in pain Cardiovascular: regular rate and rhythym, no murmur, rub, or gallop Respiratory: no respiratory distress, no rales or rhonchi, clear to auscultation Gastrointestinal: normoactive bowel sounds, soft, non-tender abdomen, no palpable masses Skin: no rashes or abrasions, no fluctuance, no induration Neurologic: AAOx3, sensation intact bilaterally Psychiatric: interacting appropriately, not anxious, not encephalopathic, thought process linear ICD10 Worksheet Patient Problems: Problems Problem Status Onset Cholelithiasis Acute Hyponatremia Acute
[2017-03-21] MEDS: AMOXICILLIN/CLAVULANATE POT 875/125 MG TAB PO SCH (20:00)
[2017-03-21] MEDS: PATCH REMOVAL 1 EA PATCH TD SCH (20:00)
[2017-03-21] MEDS: clonazePAM 0.5 MG TAB PO PRN (21:23)
[2017-03-22] MEDS: oxyCODONE IR 15 MG TAB PO PRN ×5 (04:24→21:58)
[2017-03-22] MEDS: LORazepam 2 MG/ML INJ IVP PRN (04:45)
[2017-03-22] MEDS: FUROSEMIDE 40 MG TAB PO SCH ×2 (05:05→13:03)
[2017-03-22 05:55] LABS: % IMMATURE GRANULYOCYTES 0.3 % (0.0-1.1); ABSOLUTE IMMATURE GRANULOCYTES 0.03 10^3/uL (0.00-0.10); ADD DIFF? NO; ADD MORPH? NO; ADD SCAN? NO; ATYPICAL LYMPHOCYTE FLAG 10 (0-99); FRAGMENT RBC FLAG 0 (0-99); HEMATOCRIT 40.3 % (38.0-47.0); HEMOGLOBIN 13.9 g/dL (12.6-16.3); LEFT SHIFT FLG 0 (0-99); LIPEMIA HEMOLYSIS FLAG 90 (0-99); MEAN CELL HEMOGLOBIN 32.9 pg (27.9-34.1); MEAN CELL HEMOGLOBIN CONCENTR. 34.5 g/dL (32.4-36.7); MEAN CELL VOLUME 95.3 fL (81.5-99.8); MEAN PLATELET VOLUME 11.4 fL (8.7-11.7); PLATELET CLUMPS FLAG 0 (0-99); PLATELET COUNT 120 10^3/uL (150-400); RED BLOOD CELL COUNT 4.23 10^6/uL (4.18-5.33); RED CELL DISTRIBUTION WIDTH 12.5 % (11.5-15.2)
[2017-03-22] MEDS: IPRATROPIUM/ALBUTEROL 3 ML DEYVIAL IH SCH ×4 (06:15→20:38)
[2017-03-22] MEDS: ACETYLCYSTEINE 20% IH/PO 30 ML VIAL IH SCH ×2 (06:16→11:04)
[2017-03-22 06:20] LABS: ALANINE AMINOTRANSFERASE 39 IU/L (9-52); ALBUMIN 2.8 g/dL (3.5-5.0); ALKALINE PHOSPHATASE 138 IU/L (38-126); ANION GAP 6 mEq/L (8-16); ASPARTATE AMINOTRANSFERASE 22 IU/L (14-46); BILIRUBIN,TOTAL 1.2 mg/dL (0.1-1.4); BILIRUBIN-CONJUGATED 0.5 mg/dL (0.0-0.5); BILIRUBIN-UNCONJUGATED 0.7 mg/dL (0.0-1.1); CALCIUM 8.8 mg/dL (8.5-10.4); CARBON DIOXIDE 29 mEq/l (22-31); CHLORIDE 93 mEq/L (97-110); CREATININE 0.5 mg/dL (0.6-1.0); GLOMERULAR FILTRATION RATE > 60; GLUCOSE 105 mg/dL (70-100); POTASSIUM 3.2 mEq/L (3.5-5.2); SODIUM 128 mEq/L (134-144); TOTAL PROTEIN 5.8 g/dL (6.3-8.2)
[2017-03-22] MEDS: SENNOSIDES/DOCUSATE SODIUM TAB PO SCH ×2 (07:56→20:45)
[2017-03-22] MEDS ORDERED: POTASSIUM CL 20 MEQ/15 ML UDCUP PO ONE (08:34)
[2017-03-22] MEDS: LIDOCAINE 5% 1 EA PATCH TD SCH (08:46)
[2017-03-22] MEDS: NICOTINE 21 MG/24 HR PATCH TD SCH (08:46)
[2017-03-22] MEDS: GABAPENTIN 300 MG CAP PO SCH ×2 (08:47→19:54)
[2017-03-22] MEDS: CARVEDILOL 3.125 MG TAB PO SCH ×2 (08:47→18:25)
[2017-03-22] MEDS: ASPIRIN EC 81 MG TAB PO SCH (08:47)
[2017-03-22] MEDS: ENOXAPARIN 40 MG/0.4 ML SYR SC SCH (08:47)
[2017-03-22] MEDS: AMOXICILLIN/CLAVULANATE POT 875/125 MG TAB PO SCH ×2 (08:47→19:54)
[2017-03-22] MEDS: SPIRONOLACTONE 25 MG TAB PO SCH (08:47)
--- NOTE | 2017-03-22 09:11 | SOAPPROG ---
SOAP Progress Note Assessment/Plan: Assessment: 56 yo F s/p lap jasiel for cholelithiasis also with likely aspiration pneumonia. Will follow up with Dr. Elliott in 2 weeks. Dispo: to home from surgical standpoint. Will defer to medicine recs. S: no complaints today. Tolerating diet. No pain. O: Pt lying in bed, NAD Abd soft, nonTTP Objective: Vital Signs Temp Pulse Resp BP Pulse Ox 36.8 C 84 20 108/89 H 92 03/22/17 07:55 03/22/17 07:55 03/22/17 06:21 03/22/17 07:55 03/22/17 08:25 Laboratory Results 03/22/17 05:47 03/22/17 05:47 03/21/17 03/22/17 03/23/17 05:59 05:59 05:59 Intake Total 750 850 Output Total 1170 Balance -420 850 PT 13.7 SEC (12.0-15.0) 03/16/17 05:30 INR 1.06 (0.83-1.16) 03/16/17 05:30 ICD10 Worksheet Patient Problems: Problems Problem Status Onset Cholelithiasis Acute Hyponatremia Acute
--- NOTE | 2017-03-22 11:48 | ASMTCMCOM ---
CM Note CM Note Notes: Met with patient. She states she had a fight with her son and states he does not live with her. She has four sisters in the area who can help her when she dc's. She is cleared for dc with no needs per therapy. IM signed. Will dc to home with no needs. CM available should needs arise. Date Signed: 03/22/2017 11:44 AM Electronically Signed By:Vickie Flowers RN
[2017-03-22] MEDS ORDERED: PROTOCOL POTASSIUM 1 DOSE MISC PRN (16:57)
--- NOTE | 2017-03-22 17:00 | HOSPPROG ---
Hospitalist Progress Note Assessment/Plan: * Choledocholithiasis s/p lap jasiel (with sepsis POA) -no retained stones on ERCP -LFT improving * Aspiration PNA -PO augmentin * Acute respiratory failure - due to atelectasis/lobar collapse -CTA negative for PE -continue aggressive pulmonary hygiene -still very hypoxic at night only - up to 15L NRB last night -? shunting -keep inpatient - recheck CXR -increase pulmonary toilet * Continuous narcotic dependency * Chronic systolic CHF - non-ischemic cardiomyopathy s/p AICD -most recent EF 50% (previously 15%) -resume Coreg - titrate up dose as BP allows * Tobacco dependence - probable COPD * h/o PE/DVT - off anticoag * Hyponatremia - low urine sodium suggests element of hypovolemia -restart NS Subjective: anxious for discharge Objective: Vital Signs Temp Pulse Resp BP Pulse Ox 36.7 C 99 14 96/56 L 94 03/22/17 16:00 03/22/17 16:00 03/22/17 16:00 03/22/17 16:00 03/22/17 16:00 Microbiology 03/16/17 19:48 Blood Culture - Final Blood Laboratory Results 03/22/17 05:47 03/22/17 05:47 03/21/17 03/22/17 03/23/17 05:59 05:59 05:59 Intake Total 750 850 Output Total 1170 Balance -420 850 PT 13.7 SEC (12.0-15.0) 03/16/17 05:30 INR 1.06 (0.83-1.16) 03/16/17 05:30 - Physical Exam Constitutional: no apparent distress, appears nourished, not in pain Cardiovascular: regular rate and rhythym, no murmur, rub, or gallop Respiratory: no respiratory distress, no rales or rhonchi, clear to auscultation Gastrointestinal: normoactive bowel sounds, soft, non-tender abdomen, no palpable masses Skin: no rashes or abrasions, no fluctuance, no induration Neurologic: AAOx3, sensation intact bilaterally Psychiatric: interacting appropriately, not anxious, not encephalopathic, thought process linear ICD10 Worksheet Patient Problems: Problems Problem Status Onset Cholelithiasis Acute Hyponatremia Acute
[2017-03-22] MEDS: NS 1,000 ML IV SCH (17:44)
[2017-03-22 19:16] LABS: POTASSIUM 2.9 mEq/L (3.5-5.2)
[2017-03-22] MEDS ORDERED: POTASSIUM CL 10 MEQ TAB PO ONE (19:24)
[2017-03-22] MEDS: guaiFENesin 600 MG TAB.ER PO SCH (19:54)
[2017-03-22] MEDS: PATCH REMOVAL 1 EA PATCH TD SCH (21:15)
[2017-03-22] MEDS: clonazePAM 0.5 MG TAB PO PRN (22:35)
[2017-03-23 00:15] VITALS: TEMP 98.1; O2SAT 93
[2017-03-23] MEDS: GUAIFENESIN/DM 10 ML UDCUP PO PRN ×2 (01:41→06:39)
[2017-03-23] MEDS: NS 1,000 ML IV SCH (03:50)
[2017-03-23] MEDS: FUROSEMIDE 40 MG TAB PO SCH (05:21)
[2017-03-23] MEDS: IPRATROPIUM/ALBUTEROL 3 ML DEYVIAL IH SCH (05:58)
[2017-03-23 06:01] LABS: ANION GAP 6 mEq/L (8-16); CALCIUM 8.9 mg/dL (8.5-10.4); CARBON DIOXIDE 26 mEq/l (22-31); CHLORIDE 101 mEq/L (97-110); CREATININE 0.5 mg/dL (0.6-1.0); GLOMERULAR FILTRATION RATE > 60; GLUCOSE 90 mg/dL (70-100); MAGNESIUM 1.6 mg/dL (1.6-2.3); POTASSIUM 3.7 mEq/L (3.5-5.2); SODIUM 133 mEq/L (134-144)
[2017-03-23] MEDS: oxyCODONE IR 15 MG TAB PO PRN (06:41)
[2017-03-23] MEDS ORDERED: POTASSIUM CL 10 MEQ TAB PO ONE (08:01)
[2017-03-23] MEDS: NICOTINE 21 MG/24 HR PATCH TD SCH (08:13)
[2017-03-23] MEDS: LIDOCAINE 5% 1 EA PATCH TD SCH (08:13)
[2017-03-23] MEDS: guaiFENesin 600 MG TAB.ER PO SCH (08:14)
[2017-03-23] MEDS: ASPIRIN EC 81 MG TAB PO SCH (08:14)
[2017-03-23] MEDS: AMOXICILLIN/CLAVULANATE POT 875/125 MG TAB PO SCH (08:14)
[2017-03-23] MEDS: GABAPENTIN 300 MG CAP PO SCH (08:14)
[2017-03-23] MEDS: SPIRONOLACTONE 25 MG TAB PO SCH (08:14)
[2017-03-23] MEDS: ENOXAPARIN 40 MG/0.4 ML SYR SC SCH (08:14)
[2017-03-23] MEDS: CARVEDILOL 3.125 MG TAB PO SCH (08:14)
[2017-03-23 08:19] VITALS: BP 104/66; PULSE 87
[2017-03-23 08:21] VITALS: RESP 16
[2017-03-23] MEDS: SENNOSIDES/DOCUSATE SODIUM TAB PO SCH (08:30)
--- NOTE | 2017-03-23 14:40 | ASDISCHSUM ---
Discharge Information Plan Status:Home with No Needs Medically Cleared to Leave: Discharge Date:03/23/2017 10:04 AM CM D/C Disposition:Home, Routine, Self-Care ADT D/C Disposition:Against Medical Advice Projected Discharge Date:03/23/2017 10:04 AM Transportation at D/C:Family Discharge Delay Reason: Follow-Up Date:03/23/2017 10:04 AM Discharge Slot: Final Diagnosis: Placement Information Patient Contact Information Contact Name:ANA LUISA Relationship:Cleve Address: Home Phone: City: [facility] Phone: State/[place] [employer] Code: Email: Financial Information Financial Class: Primary Plan Desc:MEDICARE INPATIENT Primary Plan Number:[id number] Secondary Plan Desc:MEDICAID [place] Secondary Plan Number:[id number] Assessment Information [facility] CM Progress Note CM Note CM Note Notes: Reviewed chart. No case management d/c need identified d/t pt age and activity levels prior to admission. No Therapy evals ordered. Case Management d/c poc: Home independent when medically stable. Case Management available if needs change. Date Signed: 03/16/2017 12:39 PM Electronically Signed By:Nita Verduzco RN [facility] CM Progress Note CM Note CM Note Notes: Met with patient to discuss possible needs for discharge POC. NTBD at this time but per patient she lives with son but on separate floors. To remain in ICU at this time. CM to follow. Date Signed: 03/17/2017 12:35 PM Electronically Signed By:Vickie Flowers RN [facility] CM Progress Note CM Note CM Note Notes: Met w/pt yesterday to discuss dc poc. She said she lives with son and has good family support and people around to help her including many grandchildren. No dc needs identified at this point. Pain control has been issue (chronic pain, on chronic narcotics). Date Signed: 03/19/2017 02:51 PM Electronically Signed By:Rohini Ruiz RN [facility] CM Progress Note CM Note CM Note Notes: Met with patient. She states she had a fight with her son and states he does not live with her. She has four sisters in the area who can help her when she dc's. She is cleared for dc with no needs per therapy. IM signed. Will dc to home with no needs. CM available should needs arise. Date Signed: 03/22/2017 11:44 AM Electronically Signed By:Vickie Flowers RN Intervention Information Intervention Type:*SHIN-Signed Date of Service:03/16/2017 09:43 AM Patient Type:Observation Staff Member:Mariam Aggarwal Hours: Discipline: Severity: Comment:
--- NOTE | 2017-03-24 05:07 | GDS ---
[f rep st] DISCHARGE SUMMARY Please note this is an [facility] discharge. Patient left on the date of March 23 without receiving pre scriptions or home oxygen arrangement. DIAGNOSES: 1. Choledocholithiasis, status post laparoscopic cholecystectomy. 2. Sepsis present on admission. 3. Aspiration pneumonia. 4. Acute respiratory failure due to atelectasis and lobar collapse. 5. Continuous narcotic dependency. 6. Chronic systolic congestive heart failure due to nonischemic cardiomyopathy, status post AICD. 7. Tobacco dependence and probable chronic obstructive pulmonary disease. 8. History of pulmonary embolus and deep vein thrombosis. 9. Hyponatremia due to hypovolemia. HISTORY: The patient is a 56-year-old female, who was admitted with sepsis due to choledocholithiasi s, and she underwent laparoscopic cholecystectomy. She did not have any retained stones on ERCP, and her LFTs improve down to normal. Postsurgery she developed acute respiratory failure requiring transfer to ICU for BiPAP. CT angiogra m was negative for PE, but did show atelectasis and a complete lobar collapse. She was treated with aggressive pulmonary hygiene. She had a prolonged course regarding stability on oxygen but was only on a couple of liters at the time that she left. She had been transitioned to oral Augmentin for kira pected aspiration pneumonia. On the day that she left [facility], she was probably going to be medically discharged later that day; [facility], she was inpatient, did not want to wait for proper discharge orders, and signed out a few hours p rior to that without receiving any prescriptions or home oxygen. She was adequately informed regardi ng her risk of acute respiratory failure or worsening pneumonia due to lack of these therapies. Ther e were no new prescriptions given at time of hospital discharge or follow-up instructions. /[id number]/MODL
== END 2017-03-23 10:04 | disposition left against medical advice (07) | DRG 853 ==
LOC: INTOOBSV 17:46 → F3E 19:31 → F2W 03-16 02:38 → OBSVTOIN 03-16 15:53 → F2N 03-16 18:42
PROVIDERS: ADMIT Internal Medicine; ATTEND Internal Medicine
PROC: 0FT44ZZ Resection of Gallbladder, Percutaneous Endoscopic Approach (ICD-10-PCS; principal; 2017-03-15 00:13)
DX: A41.9 Sepsis, unspecified organism (principal); J96.00 Acute respiratory failure, unspecified whether with hypoxia or hypercapnia; J69.0 Pneumonitis due to inhalation of food and vomit; J98.11 Atelectasis; I50.22 Chronic systolic (congestive) heart failure; E87.1 Hypo-osmolality and hyponatremia; K80.00 Calculus of gallbladder with acute cholecystitis without obstruction; F17.200 Nicotine dependence, unspecified, uncomplicated; J44.9 Chronic obstructive pulmonary disease, unspecified; G89.29 Other chronic pain; F11.90 Opioid use, unspecified, uncomplicated; Z95.810 Presence of automatic (implantable) cardiac defibrillator; Z86.711 Personal history of pulmonary embolism; Z86.718 Personal history of other venous thrombosis and embolism; Z79.01 Long term (current) use of anticoagulants
CPT/HCPCS: 96374; 97161-GP; 97165-GO; 97530-GP; C1726; G0378; G8978-GP-CI; G8979-GP-CI; G8980-GP-CI; G8987-GO-CJ; G8988-GO-CI; J1100; J1170; J1335; J1610; J1650; J1885; J1956; J2060; J2250; J2405; J2704; J2710; J3010; Q9961

== ENCOUNTER 2017-04-02 16:44 | Emergency (ER) | payer OTHER, MEDICAID ==
--- NOTE | 2017-04-02 18:39 | EDPHY ---
H & P Stated Complaint: 2 WEEKS AGO GALL BLADDER SURGERY NOW WITH SEVERE RUQ PAIN HPI/ROS: CHIEF COMPLAINT: Right upper quadrant pain HISTORY OF PRESENT ILLNESS: This is a 51-year-old female who presents with persistent right upper quadrant pain following laparoscopic cholecystectomy on March 16. She had a prolonged hospitalization--was admitted from March 15 through March 23, She left AMA without receiving medication prescriptions. During the hospitalization she had acute respiratory failure with aspiration pneumonia. She has a history of COPD and tobacco dependence. She also has a history of PE and DVT. No PE was seen on radiographic studies during that hospitalization. However, she had persistent hypoxia. The plan had been to send her home with oxygen but she left before these arrangements could be made. She saw her primary care provider, Dr. Mendenhall in [place], and was given a prescription for oxycodone for persistent pain. She has been taking the oxycodone every 4 hours but states that she has had no improvement in her pain. She states that she was no better after surgery. She has not been aware of fever. She has not had vomiting. She last took oxycodone this morning. She took [address] Mendenhall has arranged for her to have home oxygen. She continues to smoke cigarettes, but has cut back. REVIEW OF SYSTEMS: A ten point review of systems was performed and is negative with the exception of the items mentioned in the HPI. Chronic smoker's cough. Past medical history: 1. Idiopathic nonischemic cardiomyopathy, chronic congestive heart failure 2. Tobacco abuse 3. CVA 4. History of PE 5. Chronic narcotic dependence 6. Acute respiratory failure during recent hospitalization in February of 2017 with aspiration pneumonia Past surgical history: 1. AICD 2. Laparoscopic cholecystectomy February 2017 Social history: Tobacco abuse. She is . General Appearance: Alert. Vital signs reviewed. Oxygen 86% on room air. Eyes: Pupils equal and round, no conjunctival injection, no discharge. Anicteric. ENT, Mouth: Mucous membranes are moist, no oropharyngeal erythema or edema. Neck: No lymphadenopathy, supple. Respiratory: Lungs are clear to auscultation; no wheezes, rales, or rhonchi. Cardiovascular: Regular rate and rhythm; no murmur, rub, or gallop. Gastrointestinal: Abdomen is soft, no masses or organomegaly, bowel sounds normal. Surgical incisions healing well; very mild tenderness with palpation around incisions, no guarding. Skin: Warm and dry, no rashes on exposed skin, normal color. Purple bruises scattered across the abdomen. Purple bruises left lateral wrist. Back: Nontender to palpation over the thoracolumbar spine. No CVAT. Extremities: No lower extremity edema, no calf tenderness or swelling. Neurological: Alert and oriented. Moving all four extremities easily and equally. Psychiatric: Normal affect. - Personal History Current Tetanus Diphtheria and Acellular Pertussis (TDAP): Yes Tetanus Vaccine Date: < 10 YEARS - Medical/Surgical History Hx Asthma: No Hx Chronic Respiratory Disease: No Hx Diabetes: No Hx Cardiac Disease: No Hx Renal Disease: No Hx Cirrhosis: No Hx Alcoholism: No Hx HIV/AIDS: No Hx Splenectomy or Spleen Trauma: No Other PMH: PACEMAKER dR CEDEÑO. chf, CERVICAL Disc issues, CHOLECYSTECTOMY - Social History Smoking Status: Current every day smoker Constitutional: Initial Vital Signs Temperature (C) 37.1 C 04/02/17 17:04 Heart Rate 88 04/02/17 17:04 Respiratory Rate 16 04/02/17 17:04 Blood Pressure 107/65 04/02/17 17:04 O2 Sat (%) 86 L 04/02/17 17:04 O2 Delivery Mode Nasal Cannula O2 (L/minute) 1 Allergies/Adverse Reactions: No Known Allergies Allergy (Unverified 04/02/17 17:07) Home Medications: Medication Instructions Recorded Aspirin EC [Aspirin EC 81 mg (*)] 81 mg PO DAILY 03/15/17 Carvedilol [Coreg (*)] 25 mg PO BIDMEAL 03/15/17 Furosemide [Lasix 40 MG (*)] 40 mg PO BID 03/15/17 Potassium Cl [Klor-Con 20 meq (*)] 20 meq PO DAILY 03/15/17 Vit27&Calcium/Iron/FA 1 each PO DAILY 03/15/17 [ Rx 1 Tablet (RX)] Spironolactone [Aldactone 25 MG 25 mg PO DAILY 03/15/17 (*)] clonAZEPAM [Klonopin] 0.5 mg PO TID PRN 03/15/17 oxyCODONE HCL [Roxicodone] 15 mg PO Q4 PRN 03/15/17 Medical Decision Making ED Course/Re-evaluation: 56-year-old female status post laparoscopic cholecystectomy who presents with persistent abdominal pain. She states that her pain has never improved. She is taking oxycodone for pain. This is being provided by her primary care physician. She has not followed up with her surgeon. On examination her abdomen is soft and nontender. She has normal white blood cell count. Liver functions and lipase were obtained. Lipase is low and liver functions are normal. I do not suspect postoperative abscess. I do not suspect biliary colic and do not feel that she needs additional studies tonight. She is noted to be hypoxic with a pulse ox of 86% on arrival. She left the hospital AMA following her surgery. Oxygen was being arranged for her to use at home but she left before receiving this. Her primary care physician has ordered oxygen for her and she tells me that she will be receiving it on Wednesday , 2 days hence. She is not concerned about her oxygen level. She understands that she needs to quit smoking. She has cut back significantly. She is not interested in getting oxygen tonight. She was re-examined in her abdomen remains soft and nontender. She was sitting up in bed, on her phone, and appeared comfortable. I feel that she can safely return home. I am recommending follow up with her surgeon. Differential Diagnosis: Abdominal pain including but not limited to biliary colic post cholecystectomy, postoperative abscess, urinary tract infection, ureterolithiasis, chronic abdominal pain.. - Data Points Laboratory Results: Laboratory Results 04/02/17 19:28 04/02/17 19:28 Departure - Departure Disposition: Home, Routine, Self-Care Clinical Impression: Abdominal pain Qualifiers: Abdominal location: right upper quadrant Qualified Code(s): R10.11 - Right upper quadrant pain Condition: Good Instructions: Chronic Abdominal Pain (ED) Additional Instructions: Continue the pain medicine the doctor Jona has prescribed. It is important that you use the oxygen that is prescribed for you. It is also imperative that you quit smoking. I am giving you the name of Dr. Gurpreet Elliott, the surgeon that performed your gallbladder surgery. I recommend that you call his office and schedule a follow -up. Referrals: TARAN MENDENHALL [Primary Care Provider] - As per Instructions Gurpreet Elliott MD [Medical Doctor] - As per Instructions
[2017-04-02 19:54] LABS: % IMMATURE GRANULYOCYTES 0.5 % (0.0-1.1); ABSOLUTE IMMATURE GRANULOCYTES 0.04 10^3/uL (0.00-0.10); ADD DIFF? NO; ADD MORPH? NO; ADD SCAN? NO; ATYPICAL LYMPHOCYTE FLAG 10 (0-99); FRAGMENT RBC FLAG 0 (0-99); HEMATOCRIT 44.8 % (38.0-47.0); HEMOGLOBIN 15.9 g/dL (12.6-16.3); LEFT SHIFT FLG 0 (0-99); LIPEMIA HEMOLYSIS FLAG 90 (0-99); MEAN CELL HEMOGLOBIN 32.9 pg (27.9-34.1); MEAN CELL HEMOGLOBIN CONCENTR. 35.5 g/dL (32.4-36.7); MEAN CELL VOLUME 92.8 fL (81.5-99.8); MEAN PLATELET VOLUME 10.5 fL (8.7-11.7); PLATELET CLUMPS FLAG 0 (0-99); PLATELET COUNT 193 10^3/uL (150-400); RED BLOOD CELL COUNT 4.83 10^6/uL (4.18-5.33); RED CELL DISTRIBUTION WIDTH 13.1 % (11.5-15.2)
[2017-04-02 19:55] LABS: ALANINE AMINOTRANSFERASE 31 IU/L (9-52); ALBUMIN 3.8 g/dL (3.5-5.0); ALKALINE PHOSPHATASE 101 IU/L (38-126); ANION GAP 10 mEq/L (8-16); ASPARTATE AMINOTRANSFERASE 21 IU/L (14-46); BILIRUBIN,TOTAL 0.6 mg/dL (0.1-1.4); BILIRUBIN-CONJUGATED 0.5 mg/dL (0.0-0.5); BILIRUBIN-UNCONJUGATED 0.1 mg/dL (0.0-1.1); CALCIUM 9.3 mg/dL (8.5-10.4); CARBON DIOXIDE 33 mEq/l (22-31); CHLORIDE 81 mEq/L (97-110); CREATININE 0.5 mg/dL (0.6-1.0); GLOMERULAR FILTRATION RATE > 60; GLUCOSE 101 mg/dL (70-100); POTASSIUM 3.3 mEq/L (3.5-5.2); SODIUM 124 mEq/L (134-144); TOTAL PROTEIN 7.1 g/dL (6.3-8.2)
[2017-04-02 20:59] VITALS: BP 100/67; PULSE 76; RESP 20; TEMP 97.9; O2SAT 92
== END 2017-04-02 20:59 | disposition home or self-care (01) ==
DX: R10.11 Right upper quadrant pain (principal); F17.200 Nicotine dependence, unspecified, uncomplicated; I50.9 Heart failure, unspecified; Z79.82 Long term (current) use of aspirin; Z86.73 Personal history of transient ischemic attack (TIA), and cerebral infarction without residual deficits; Z95.0 Presence of cardiac pacemaker

== ENCOUNTER → 2017-04-08 | Outpatient (CLI) | payer OTHER, MEDICAID | LOC: FLAB 10:20 | PROVIDERS: ATTEND Surgery | DX: Z09 Encounter for follow-up examination after completed treatment for conditions other than malignant neoplasm (principal); Z87.09 Personal history of other diseases of the respiratory system; Z95.0 Presence of cardiac pacemaker ==

== ENCOUNTER → 2017-04-15 | Outpatient (CLI) | payer OTHER, MEDICAID ==
[~2017-04-15] MED LIST: IOPAMIDOL (ISOVUE-300) 100 ML BTL ONE
== END ==
LOC: FIMAGING 16:15
PROVIDERS: ATTEND Surgery
DX: R10.11 Right upper quadrant pain (principal); Z90.49 Acquired absence of other specified parts of digestive tract
CPT/HCPCS: 74177; Q9967

== ENCOUNTER → 2018-08-08 | Outpatient (CLI) | payer OTHER | LOC: BHLMT 14:00 | PROVIDERS: ATTEND Internal Medicine Cardiovascular Disease | DX: T82.118A Breakdown (mechanical) of other cardiac electronic device, initial encounter (principal); J44.9 Chronic obstructive pulmonary disease, unspecified; I42.8 Other cardiomyopathies | CPT/HCPCS: 93306-PO ==